=== PATIENT | female | born 1955 | race Caucasian/White ===

== ENCOUNTER → 2017-03-02 16:33 | Outpatient (CLI) | payer OTHER | END | disposition home or self-care (01) | LOC: D.MAMMO 14:30 | DX: Z12.31 Encounter for screening mammogram for malignant neoplasm of breast (principal) ==

== ENCOUNTER → 2017-03-16 09:10 | Outpatient (CLI) | payer MEDICARE | END | disposition home or self-care (01) | LOC: D.RAD 09:10 | DX: Z98.84 Bariatric surgery status (principal) ==

== ENCOUNTER 2017-04-04 09:26 | Day surgery (SDC) | payer OTHER ==
[~2017-04-04] VITALS: Ht 175.3 cm; Wt 168.2 kg
[2017-04-04] MEDS ORDERED: ELAVIL25 MG PO (09:47)
[2017-04-04] MEDS ORDERED: ESTRACE1 MG PO (09:47)
[2017-04-04] MEDS ORDERED: HCTZ25 MG PO (09:47)
[2017-04-04] MEDS ORDERED: CYMBALTA60 MG PO (09:48)
[2017-04-04] MEDS ORDERED: TOPROL XL100 MG PO (09:48)
[2017-04-04] MEDS ORDERED: DICLOFENAC SODI50 MG PO (09:49)
[2017-04-04 09:58] VITALS: BP 118/74; Ht 175.3 cm; Wt 168.2 kg
[2017-04-04 11:03] LABS: ANION GAP 14.5 mmol/L (8-16); CALCIUM 8.9 mg/dL (8.5-10.1); CARBON DIOXIDE 30.5 mmol/L (21.0-32.0); CREATININE - SERUM 0.9 mg/dL (0.6-1.3)
--- NOTE | 2017-04-04 14:49 | NUR ---
1425 DISCHARGE INSTRUCTIONS COMPLETE. NO PRESCRIPTIONS GIVEN. MD DID NOT COME TO BEDSIDE AFTER PROCEDURE AND PATIENT DID NOT WANT TO WAIT. FOLLOW UP APPOINTMENT MADE. ESCORTED OUT BY VOLUNTEER.
[2017-04-05 07:14] LABS: HEMATOCRIT 52.3 % (36.0-48.0); HEMOGLOBIN 16.5 g/dL (12-16); MCH 30.8 pg (26.0-34.0); MCHC 31.5 g/dL (31.0-37.0); MCV 97.6 fL (80.0-100.0); MEAN PLATELET VOLUME 10.9 fL (7.4-10.4); RBC 5.36 10x6/uL (4.00-5.40); RDW 14.6 % (11.5-14.5); WBC 8.9 10x3/uL (4.8-10.8)
--- NOTE | 2017-04-05 08:04 | OP ---
PATIENT NAME: MARISSA RANKIN MEDICAL RECORD: [id number] :57 LOCATION:D.OPS ADMISSION DATE: SURGEON: ANGELES GONZALES MD DATE OF OPERATION: 04/04/2017 SURGEON: Angeles Gonzales MD (JJ) PREOPERATIVE DIAGNOSES: 1. Dysphagia. 2. History of gastric band. 3. Morbid obesity. POSTOPERATIVE DIAGNOSES: 1. Dysphagia. 2. History of gastric band. 3. Morbid obesity. PROCEDURE PERFORMED: Esophagogastroduodenoscopy. ANESTHESIA: Total intravenous anesthesia. COMPLICATIONS: None. SPECIMENS: None. Case was contaminated. BLOOD LOSS: Minimal. OPERATIVE COURSE: After consent was obtained, the patient was taken to the endoscopy suite. Time-out was taken to confirm the correct patient and procedure. Hurricaine spray was administered. Bite-block was placed. Total intravenous anesthesia was given. The patient was placed in the left lateral decubitus position. Scope was inserted through the bite-block. It was passed into the posterior oropharynx, it was passed posterior to the epiglottis. Under direct endoscopic vision, the scope was advanced through the esophagus and into the stomach. The stomach appeared grossly normal. Scope was retroflexed. There appeared to be a moderate-sized hiatal hernia. The scope was withdrawn. The GE junction appeared relatively normal. The gastric band has slipped well above the GE junction. Just above the gastroesophageal junction, is a second significant luminal narrowing with significant esophagitis above the area of luminal narrowing, consistent with dilatation of the esophagus just above the gastric band. At this time, the scope was advanced back into the stomach. The stomach was desufflated. The remaining portion of the esophagus was examined upon withdrawal of the scope. There were no abnormalities noted within distal esophagus or mid or proximal esophagus. At the end of the case, all needle and instrument counts were correct. No complications occurred. The patient was transferred to recovery room in satisfactory condition. TRANSINT:[id number] Voice Confirmation ID: [id number] DOCUMENT ID: [id number] OPERATIVE REPORT [id number] MARISSA RANKINANGELES SOLIS MD at 0804 CC: [id number] DICTATION DATE: 04/04/17 1308 RIM ROLLER OPERATOR: 04/04/17 1837 [facility] 04/04/17 [facility] [address] [facility] [place] [address]
== END 2017-04-04 14:25 | disposition home or self-care (01) ==
LOC: D.OPS 09:26
PROVIDERS: Anesthesiology
DX: R13.10 Dysphagia, unspecified (principal); E66.01 Morbid (severe) obesity due to excess calories; Z68.43 Body mass index [BMI] 50.0-59.9, adult; Z98.890 Other specified postprocedural states; F17.200 Nicotine dependence, unspecified, uncomplicated; I10 Essential (primary) hypertension; K44.9 Diaphragmatic hernia without obstruction or gangrene; Z01.812 Encounter for preprocedural laboratory examination

== ENCOUNTER 2017-04-23 11:31 | Day surgery (SDC) | payer OTHER ==
[~2017-04-23 11:31] MED LIST: CYMBALTA60 MG PO; DICLOFENAC SODI50 MG PO; ELAVIL25 MG PO; ESTRACE1 MG PO; HCTZ25 MG PO; TOPROL XL100 MG PO
[2017-04-23 12:12] VITALS: BP 120/75; BMI 45.9
[2017-04-23 12:23] LABS: HEMATOCRIT 49.3 % (36.0-48.0); HEMOGLOBIN 16.8 g/dL (12-16); MCH 30.8 pg (26.0-34.0); MCHC 34.1 g/dL (31.0-37.0); MCV 90.5 fL (80.0-100.0); MEAN PLATELET VOLUME 10.1 fL (7.4-10.4); RBC 5.45 10x6/uL (4.00-5.40); RDW 13.6 % (11.5-14.5); WBC 9.3 10x3/uL (4.8-10.8)
--- NOTE | 2017-04-23 15:09 | NUR ---
PT REC'D TO ROOM VIA STRETCHER. AWAKE, ALERT, TALKING.
--- NOTE | 2017-04-23 15:20 | NUR ---
LIQUID DIET SERVED AND TOLERATED.
--- NOTE | 2017-04-23 15:40 | NUR ---
IV D/C'D CATH INTACT.
--- NOTE | 2017-04-23 15:50 | NUR ---
D/C INSTRUCTIONS EXPLAINED TO PT. VOICED UNDERSTANDING. COPIES OF ALL GIVEN TO PT.
--- NOTE | 2017-04-23 15:55 | NUR ---
D/C'D HOME VIA W/C TO PRIVATE CAR.
--- NOTE | 2017-04-25 14:40 | OP ---
PATIENT NAME: MARISSA RANKIN MEDICAL RECORD: [id number] :57 LOCATION:DLeeannOPS ADMISSION DATE: SURGEON: VISHNU HERNÁNDEZ DO DATE OF OPERATION: 04/23/2017 PROCEDURE: Colonoscopy with polypectomy. INDICATIONS FOR PROCEDURE: Screening for colorectal cancer. SCOPE: Olympus video pediatric colonoscope. MEDICATIONS: Propofol 500 mg IV per anesthesia. WITHDRAWAL TIME: 14 minutes. ESTIMATED BLOOD LOSS: Minimal. COMPLICATIONS: None. FINDINGS: Informed consent was given. The patient was made comfortable with the above medication. After reaching an adequate level of sedation by slow IV push, the patient was placed on her left side. A digital rectal examination was performed and was normal. The endoscope was then advanced under direct visualization through the rectum to the terminal ileum. The scope was slowly withdrawn and the mucosa was carefully examined. The prep quality was excellent. There were 4 polyps visualized on today's examination. The first was a benign-appearing sessile polyp, which measured approximately 2-3 mm in diameter and was located in the cecum near the appendiceal orifice. It was removed using cold forceps in one piece and completely retrieved. The other 3 polyps were all located in the sigmoid colon. They were benign-appearing and sessile and ranged in size from 4-5 mm in diameter. They were all removed using hot forceps in one piece and completely retrieved. Retroflexion was performed in the rectum with visualization of small nonbleeding internal hemorrhoids. The endoscope was then withdrawn from the patient. The patient tolerated the procedure well. There were no complications. IMPRESSION: 1. Four polyps as described above removed using cold and hot forceps. 2. Small nonbleeding internal hemorrhoids. PLAN AND RECOMMENDATIONS: 1. Discharge home when recovery parameters are met. 2. Follow up biopsy specimen results. 3. Continue current diet. 4. Continue current medications. 5. Recall colonoscopy in 5 years based on the number and types of polyps removed on today's examination. TRANSINT:[id number] Voice Confirmation ID: [id number] DOCUMENT ID: [id number] OPERATIVE REPORT [id number] MARISSA RANKIN VISHNU HERNÁNDEZ DO at 1440 CC: [id number] DICTATION DATE: 04/23/17 1509 PAPER CARRIER: 04/23/[address] [facility] 04/23/[address] [facility] [address] [place] [address]
== END 2017-04-23 16:05 | disposition home or self-care (01) ==
LOC: D.OPS 11:31
PROVIDERS: Anesthesiology
DX: Z12.11 Encounter for screening for malignant neoplasm of colon (principal); I10 Essential (primary) hypertension; E66.01 Morbid (severe) obesity due to excess calories; Z68.42 Body mass index [BMI] 45.0-49.9, adult; Z01.812 Encounter for preprocedural laboratory examination; K64.8 Other hemorrhoids

== ENCOUNTER 2017-09-03 05:40 | Day surgery (SDC) | payer OTHER ==
[2017-08-31 09:45] LABS: HEMATOCRIT 49.2 % (36.0-48.0); HEMOGLOBIN 16.5 g/dL (12-16); MCH 30.4 pg (26.0-34.0); MCHC 33.5 g/dL (31.0-37.0); MCV 90.8 fL (80.0-100.0); MEAN PLATELET VOLUME 10.1 fL (7.4-10.4); RBC 5.42 10x6/uL (4.00-5.40); RDW 14.2 % (11.5-14.5); WBC 10.6 10x3/uL (4.8-10.8)
--- NOTE | ~2017-09-03 | OP ---
PATIENT NAME: MARISSA RANKIN MEDICAL RECORD: [id number] :57 LOCATION:D.MS Chou2239 ADMISSION DATE: SURGEON: ANGELES GONZALES MD DATE OF OPERATION: 09/03/2017 SURGEON: Angeles Gonzales MD PREOPERATIVE DIAGNOSES: 1. Dysphagia. 2. Hiatal hernia. 3. History of lap band. 4. Morbid obesity. 5. Essential hypertension. POSTOPERATIVE DIAGNOSES: 1. Dysphagia. 2. Hiatal hernia. 3. History of lap band. 4. Morbid obesity. 5. Essential hypertension. PROCEDURE PERFORMED: 1. Laparoscopic gastric band removal and subcutaneous components. 2. Laparoscopic hiatal hernia repair. ANESTHESIA: General. COMPLICATIONS: None. SPECIMENS: Gastric band. Case was contaminated. ESTIMATED BLOOD LOSS: 40 cc. OPERATIVE COURSE: After consent was obtained, the patient was taken to the operating room and placed in the supine position on the operating table. Next, general anesthesia was given via endotracheal intubation after a timeout was performed that confirmed the correct patient and procedure. The abdomen was prepped and draped in typical sterile fashion. Local anesthetic was injected just above the umbilicus. A stab incision was made with 11-blade scalpel. Using an 11-mm bladeless optical trocar, the abdomen was entered under direct laparoscopic vision. Adequate pneumoperitoneum was achieved. The abdominal cavity was inspected. No evidence of bowel injury. No evidence of bleeding. At this time, all remaining were placed, a 12-mm trocar and 5-mm trocar in the right lateral quadrant, 5-mm trocar in the left lateral quadrant. Khadar liver retracted in the subxiphoid position. The left lobe of liver was elevated. The port tubing was dissected using electrocautery. Dissection continued to the level of the anterior stomach. Dissection continued through the scar tissue around the gastric band using combination of electrocautery and Metzenbaum scissor dissection. Once the tissue was dissected, the band was unlocked. The class was cut opened. The band was then pulled through the tract and laid into the left lateral quadrant. To allow this band removal, the hiatal hernia was also dissected during the process. The superior portion of the band was through the diaphragmatic hiatus. The upper third of the stomach and OPERATIVE REPORT [id number] MARISSA RANKIN cardia, the short gastrics were taken with the Harmonic scalpel. Dissection along the greater curvature of stomach in the left crura was identified. The gastrohepatic ligament was opened with the Harmonic scalpel. Dissection continued up to the level of the right crura posteriorly. A posterior window was created with a combination of blunt dissection and Harmonic scalpel. The esophagus was elevated superiorly and the dissection continued circumferentially posterior to the esophagus. Next, circumferentially dissected to the esophagus completing a full hernia dissection. The hernia sac was excised in its entirety. The band was removed. The hiatus was closed with 0 Stratafix polypropylene suture. Approximately 5 cm of intraabdominal esophagus were obtained. The hernia sac and abdominal fat pad were dissected off the anterior portion of the stomach. Once this was complete, the area was copiously irrigated and suctioned. No evidence of bowel injury. No evidence of bleeding. The left Khadar liver retractor was removed. The hernia sac was grasped with a laparoscopic grasper and placed towards the left upper quadrant. At this time, all remaining instruments were removed. The abdomen was desufflated. Trocars removed. Left upper quadrant incision was reopened Dissecting the level of the external oblique fascia. The subcutaneous port was identified. It was circumferentially dissected. The muscle was taken with electrocautery. The peritoneum and fascia were opened with electrocautery. The subcutaneous port in the band were removed in its entirety. The hernia sac was delivered through the incision and sent for permanent pathology. At this time, the remaining laparoscopic instrument and trocars were both removed. The fascia was then closed with #1 Prolene Skin was closed with sunitha. At the end of the case, all needle and instrument counts were correct. No complications occurred. The patient was extubated and transferred to the PACU in stable condition. TRANSINT:[id number] Voice Confirmation ID: [id number] DOCUMENT ID: [id number] ANGELES GONZALES MD at 1524 CC: [id number] DICTATION DATE: 09/03/17 1227 SPANNER OPERATOR: 09/03/17 1342 [facility] [address] [place] [id number]
[2017-09-03] MEDS ORDERED: PROAIR HFA8.5 GM INH (07:35)
[2017-09-03] MEDS ORDERED: BREO ELLIPTA 21 EACH (07:36)
[2017-09-03 07:37] VITALS: BP 118/73; BMI 54.4
[2017-09-03 08:24] LABS: CALC OSMOLALITY 280 mosm/kg (275-300); CALCIUM 9.5 mg/dL (8.5-10.1); CARBON DIOXIDE 25.8 mmol/L (21.0-32.0); CHLORIDE - SERUM 101 mmol/L (98-107); CREATININE - SERUM 0.8 mg/dL (0.6-1.3); GLUCOSE 112 mg/dL (74-106); POTASSIUM - SERUM 3.6 mmol/L (3.5-5.1); SODIUM 139 mmol/L (136-145); UREA NITROGEN 17 mg/dL (7-18); eGFR NON AFRICAN AMERICAN 77 mL/min (90-120)
[2017-09-03 13:33] VITALS: BP 96/51
[2017-09-03 13:41] VITALS: BP 96/51; BMI 54.7
[2017-09-03] MEDS ORDERED: HYDROCODON-ACE1 EAC7 PO (15:51)
== END 2017-09-03 17:33 | disposition home or self-care (01) ==
LOC: D.OPS 05:40 → D.PAN 08:00 → D.OPS 08:00 → D.MS 13:09 → D.OPS 17:33
PROVIDERS: Anesthesiology
DX: K44.9 Diaphragmatic hernia without obstruction or gangrene (principal); Z45.89 Encounter for adjustment and management of other implanted devices; E66.01 Morbid (severe) obesity due to excess calories; I10 Essential (primary) hypertension; Z01.812 Encounter for preprocedural laboratory examination

== ENCOUNTER → 2017-09-20 07:26 | Outpatient (CLI) | payer OTHER ==
[2017-09-03 13:41] VITALS: BMI 54.7
[~2017-09-20 07:26] MED LIST changes: +BREO ELLIPTA 21 EACH; +HYDROCODON-ACE1 EAC7 PO; +PROAIR HFA8.5 GM INH
[2017-09-25 21:08] LABS: IMMUNOGLOBULIN E 156 IU/mL (0-100)
== END | disposition home or self-care (01) ==
LOC: D.RT 07:26
PROVIDERS: Internal Medicine Pulmonary Disease
DX: J45.909 Unspecified asthma, uncomplicated (principal)

== ENCOUNTER → 2017-10-02 08:31 | Outpatient (CLI) | payer OTHER ==
[~2017-10-02] VITALS: Ht 175.3 cm; Wt 166.9 kg
[2017-10-02 09:52] VITALS: Ht 175.3 cm; Wt 166.9 kg
== END | disposition home or self-care (01) ==
LOC: D.FANS 08:31
DX: E66.01 Morbid (severe) obesity due to excess calories (principal)

== ENCOUNTER 2017-12-26 05:55 | Inpatient (IN) | payer OTHER ==
[2017-12-25 13:28] LABS: HEMATOCRIT 50.2 % (36.0-48.0); HEMOGLOBIN 17.3 g/dL (12-16); MCH 30.8 pg (26.0-34.0); MCHC 34.5 g/dL (31.0-37.0); MCV 89.3 fL (80.0-100.0); MEAN PLATELET VOLUME 9.9 fL (7.4-10.4); RBC 5.62 10x6/uL (4.00-5.40); WBC 9.7 10x3/uL (4.8-10.8)
[2017-12-25 13:42] LABS: ANION GAP 12.8 mmol/L (8-16); CALCIUM 9.3 mg/dL (8.5-10.1); CARBON DIOXIDE 28.2 mmol/L (21.0-32.0)
[~2017-12-26] VITALS: Ht 175.3 cm; Wt 166.9 kg
--- NOTE | ~2017-12-26 | HP ---
PATIENT: MARISSA RANKIN MEDICAL RECORD: [id number] ACCOUNT: [id number] LOCATION:D.MS Chou2204 : 57 ADMISSION DATE: 12/26/17 HISTORY AND PHYSICAL EXAMINATION HISTORY OF PRESENT ILLNESS: This is a 62-year-old female who is seeking elective revision of prior bariatric surgery. The patient has previously had a Lap-Band. She has had a Lap-Band removal and a hiatal hernia repair. She is seeking revision to laparoscopic vertical sleeve gastrectomy for failed medical weight loss attempts. She has undergone preoperative nutritional counseling as well as psychological evaluation. She had an EGD and barium swallow. She has received pulmonary clearance. ALLERGIES: INCLUDE GRASS, POLLEN, HONEY, TREE AND SHRUB POLLEN. MEDICATIONS: Include amitriptyline 25 mg p.o. at bedtime, duloxetine 60 mg delayed release daily, estradiol, fluticasone, hydrochlorothiazide 25 mg p.o. daily, hydrocodone 5/325 p.o. daily, metoprolol ER 100 mg p.o. daily, montelukast 10 mg p.o. daily, ProAir 90 mcg aerosol inhaler two puffs every 4 hours. PAST MEDICAL HISTORY: Nicotine dependence, osteoarthritis, dysphagia, history of gastric banding, hypertension, morbid obesity. FAMILY HISTORY: Mother had depression, hypertension, and osteoporosis. Father had lung cancer. SOCIAL HISTORY: Former smoker, quit in 2017. Smokes one pack a day for 40 years. PAST SURGICAL HISTORY: Bilateral Achilles tendon surgery, knee surgery times 2, , hysterectomy, laparoscopic hiatal hernia repair, laparoscopic gastric band, removal of laparoscopic gastric band. REVIEW OF SYSTEMS: CONSTITUTIONAL: She has night sweats and exercise intolerance. EYES: Irritation and dry eyes. EARS, NOSE, AND THROAT: Dry mouth. NECK: No complaints. CARDIOVASCULAR: Shortness of breath while walking, dyspnea. RESPIRATORY: Cough, wheezing, shortness of breath. GASTROINTESTINAL: Generalized abdominal pain. GENITOURINARY: Urinary frequency and urinary incontinence. MUSCULOSKELETAL: Back pain, joint pain, lower extremity swelling. SKIN: No complaints. NEUROLOGIC: No complaints. PSYCHIATRIC: Depression. ENDOCRINE: Fatigue and increased thirst. ALLERGY/IMMUNOLOGY: Frequent sneezing and sinus pressure. PHYSICAL EXAMINATION: CONSTITUTIONAL: Morbidly obese female, in mild distress. EYES: Extraocular muscles are intact. EARS, NOSE, MOUTH, AND THROAT: Normal dentition. LUNGS: Decreased breaths with inspiratory and expiratory wheezing. HISTORY AND PHYSICAL [id number] MARISSA RANKIN CARDIOVASCULAR: Normal sinus rhythm. ABDOMEN: Soft and nondistended. No masses or guarding. No hernias. MUSCULOSKELETAL: She has edema and lower extremity varicosities with normal movement of all extremities. She is neurovascularly intact. ASSESSMENT: A 62-year-old female with morbid obesity, essential hypertension, osteoarthritis, dysphagia, history of bariatric surgical procedure, prior nicotine dependence. PLAN: Elective laparoscopic revision to vertical sleeve gastrectomy. Admit to med-surg, preoperative IV antibiotics, preoperative DVT prophylaxis. TRANSINT:[id number] Voice Confirmation ID: [id number] DOCUMENT ID: [id number] ANGELES GONZALES MD at 1942 CC: [id number] DICTATION DATE: 01/16/181811 EVP MANAGING DIRECTOR: 01/16/181908 DIS IN 12/27/17 [facility] [address] [place] [address]
--- NOTE | ~2017-12-26 | DS ---
PATIENT:MARISSA RANKIN :59 MEDICAL RECORD: [id number] DISCHARGE SUMMARY ADMISSION DATE: 12/26/17 DISCHARGE DATE: 12/27/17 DATE OF ADMISSION: 12/26/2017. DATE OF DISCHARGE: 12/27/2017. ADMITTING PHYSICIAN: Angeles Gonzales MD DISCHARGE PHYSICIAN: Angeles Gonzales MD HOSPITAL COURSE: This is a 62-year-old female who was admitted for a laparoscopic revision to a vertical sleeve gastrectomy. The patient underwent a laparoscopic revision to vertical sleeve gastrectomy. Postoperatively, she was transferred to the floor in stable condition. She was started on a clear liquid diet. On postoperative day #1, she had the Gastrografin swallow, which showed no evidence of leak. She was continued on a phase 2 bariatric diet. She was seen by physical therapy. She was advanced to a bariatric phase 2 liquid diet and at the time of discharge, she was tolerating her diet. Her pain was well controlled with p.o. pain medicine. She was ambulating independently and voiding without difficulty. DISCHARGE MEDICATIONS: Please see the electronic medical record for a full list of discharge medications. FOLLOWUP: Dr. Gonzales in 2 weeks. DISCHARGE DIET: Bariatric phase 2 liquid diet for 2 weeks. Dietary instruction sheet was provided to the patient. ACTIVITY: As tolerated, walking encouraged, stairs allowed. No heavy lifting or strenuous activity for 4 weeks. WOUND CARE: The patient may shower, no bath for 2 weeks. DISCHARGE CONDITION: Stable. TRANSINT:[id number] Voice Confirmation ID: [id number] DOCUMENT ID: [id number] ANGELES GONZALES MD at 1838 CC: [id number] DICTATION DATE: 01/18/18 09 PRINTED CIRCUIT BOARDS BEVELER: 01/18/18 1054 DIS IN 12/27/17 [facility] [address] [place] [id number]
[2017-12-26 04:00] VITALS: BP 97/53
[~2017-12-26 05:55] MED LIST changes: +FISH OIL 1,0001 CA1 PO; +FLUTICASONE PRO16 GM NASAL; +LUTEIN20 MG PO; +SINGULAIR10 MG PO; +VITAMIN D5000 UNIT PO; +ZYRTEC10 MG PO
[2017-12-26 06:29] VITALS: BP 110/59; BMI 54.4
[2017-12-26 13:01] VITALS: BP 101/52
[2017-12-26 20:00] VITALS: BP 102/50
[2017-12-27 05:28] LABS: BASOPHILS 0.1 % (0-2); EOSINOPHILS 0.1 % (0-7); HEMATOCRIT 44.2 % (36.0-48.0); HEMOGLOBIN 14.3 g/dL (12-16); IMMATURE GRANULOCYTES 0.2 % (0-5); LYMPHOCYTES 16.8 % (15-50); MCH 29.7 pg (26.0-34.0); MCHC 32.4 g/dL (31.0-37.0); MEAN PLATELET VOLUME 10.6 fL (7.4-10.4); MONOCYTES 8.5 % (2-11); NEUTROPHILS 74.3 % (40-80); PLATELET COUNT 209 10x3/uL (130-400); RBC 4.81 10x6/uL (4.00-5.40); RDW 14.2 % (11.5-14.5)
[2017-12-27 05:40] LABS: MCV 91.9 fL (80.0-100.0); WBC 13.6 10x3/uL (4.8-10.8)
[2017-12-27 05:51] LABS: ALBUMIN 2.5 g/dL (3.4-5.0); ALKALINE PHOSPHATASE 61 U/L (46-116); ALT (SGPT) 20 U/L (10-68); CALC OSMOLALITY 279 mosm/kg (275-300); CALCIUM 8.2 mg/dL (8.5-10.1); CARBON DIOXIDE 30.8 mmol/L (21.0-32.0); CHLORIDE - SERUM 104 mmol/L (98-107); GLUCOSE 113 mg/dL (74-106); POTASSIUM - SERUM 3.5 mmol/L (3.5-5.1); SODIUM 140 mmol/L (136-145); UREA NITROGEN 12 mg/dL (7-18); eGFR NON AFRICAN AMERICAN 90 mL/min (90-120)
[2017-12-27 05:55] LABS: CREATININE - SERUM 0.7 mg/dL (0.6-1.3)
[2017-12-27 06:10] LABS: PROTEIN - SERUM 6.1 g/dL (6.4-8.2)
[2017-12-27 12:24] VITALS: Ht 175.3 cm; Wt 166.9 kg
[2017-12-27 13:15] VITALS: BP 108/54
[2017-12-27] MEDS ORDERED: MEPERIDINE HCL50 MG PO (15:42)
[2017-12-27] MEDS ORDERED: ZOFRAN ODT4 MG/UDTAB PO (15:42)
[2017-12-27 16:16] VITALS: BP 115/57
== END 2017-12-27 17:00 | disposition home or self-care (01) | DRG 621 ==
LOC: D.SDCHOLD 05:55 → D.MS 05:55 → D.SDCHOLD 08:00 → D.MS 12:32
PROVIDERS: Anesthesiology; Surgery
PROC: 0DB64Z3 Excision of Stomach, Percutaneous Endoscopic Approach, Vertical (ICD-10-PCS; principal; 2017-12-26 08:00)
DX: E66.01 Morbid (severe) obesity due to excess calories (principal); Z68.43 Body mass index [BMI] 50.0-59.9, adult; I10 Essential (primary) hypertension; M19.90 Unspecified osteoarthritis, unspecified site; R13.10 Dysphagia, unspecified

== ENCOUNTER 2017-12-29 13:50 | Inpatient (IN) | payer OTHER ==
[2017-12-29] VITALS (10 sets, daily range): BP systolic 80–118; BP diastolic 35–83; BMI 53.4
[~2017-12-29] VITALS: Ht 175.3 cm; Wt 81.4 kg
--- NOTE | ~2017-12-29 | OP ---
PATIENT NAME: MARISSA RANKIN MEDICAL RECORD: [id number] :57 LOCATION:D.[facility] D.2301 ADMISSION DATE:12/29/17 SURGEON: ARTHUR BUTLER MD DATE OF OPERATION: 01/14/2018 PREOPERATIVE DIAGNOSIS: History of gastric leak after a laparoscopic gastric sleeve resection for morbid obesity. POSTOPERATIVE DIAGNOSES: History of gastric leak after a laparoscopic gastric sleeve resection for morbid obesity with a persistent defect in the gastric wall. PROCEDURE: Esophagogastroduodenoscopy. SURGEON: Arthur Butler MD PAIL TESTER: None. BLOOD LOSS: Minimal. ANESTHESIA: General. I scrubbed out and removed my gown. A bite block was inserted into the mouth. I was able to advance the gastroscope easily into the hypopharynx. The esophagus was easily intubated. The two intragastric stents were visualized. I was able to intubate the duodenum. I then withdrew. There was no obstruction to outflow from the stents or an outflow obstruction through the pylorus. I was able to maneuver my gastroscope between the uncovered portion of the upper stent and was able to visualize the abdominal cavity through the gastric defect. Both Dr. Ramirez and I felt that moving the stents would be counterproductive and could be harmful to the patient. The proximal stent did extend into the esophagus. The gastroscope was then withdrawn. TRANSINT:[id number] Voice Confirmation ID: [id number] DOCUMENT ID: [id number] ARTHUR BUTLER MD at 1717 CC: [id number] DICTATION DATE: 01/15/181942 ENERGY ADVISOR: 01/25/18 0957 ADM IN [place] [id number] [place] [id number]
--- NOTE | ~2017-12-29 | OP ---
PATIENT NAME: MARISSA RANKIN MEDICAL RECORD: [id number] :57 LOCATION:[facility] D.2302 ADMISSION DATE:12/29/17 SURGEON: RANDEE LOPEZ MD DATE OF OPERATION: 01/16/2018 PROCEDURE: Fiberoptic bronchoscopy. INDICATION: Ms. Rankin is a 62-year-old female who is on mechanical ventilation. The chest radiograph showed consolidation of the right upper lobe. Fiberoptic bronchoscopy was carried out to rule out any mucus plug and obtain specimen for culture. PROCEDURE IN DETAIL: The fiberoptic bronchoscope was passed through the tracheostomy tube. The ros was sharp. The right main bronchus was normal. The subsegment to the right upper lobe, right middle lobe, and right lower lobe were within normal range. No endobronchial lesion was seen. There were bronchitic changes that bled easily by touching of the bronchoscope. The left main bronchus was normal. The subsegment to the left upper lobe and left lower lobe were within normal range. No endobronchial lesion seen. No mucus plugging was seen. Specimen washing was obtained and sent for routine culture and sensitivity, AFB, fungus, and cytology. TRANSINT:[id number] Voice Confirmation ID: [id number] DOCUMENT ID: [id number] RANDEE LOPEZ MD at 1110 CC: [id number] DICTATION DATE: 01/16/18 1710 METAL ANNEALER: 01/16/18 1744 ADM IN [place] [id number] [place] [id number]
--- NOTE | ~2017-12-29 | OP ---
PATIENT NAME: MARISSA RANKIN MEDICAL RECORD: [id number] :59 LOCATION:[facility] D.2302 ADMISSION DATE:12/29/17 SURGEON: RANDEE LOPEZ MD DATE OF OPERATION: 01/20/2018 PROCEDURE: Fiberoptic bronchoscopy. INDICATION: Ms. Rankin is a 62-year-old female who is on the ventilator. Chest radiograph showed total atelectasis of the right lower lobe, right middle lobe. Fiberoptic bronchoscopy carried out to remove any mucous plugs. DESCRIPTION OF PROCEDURE: Fiberoptic bronchoscope was passed through the tracheostomy tube. The ros was sharp. There was a total occlusion of the right main bronchus with a thick yellowish secretion. The mucous plug was removed. There was also thick secretion on the left side. No endobronchial lesion was seen as such. There were bronchitic changes and the bronchial tube bled easily by the fiberoptic bronchoscope. Overall, the patient tolerated the procedure very well. TRANSINT:[id number] Voice Confirmation ID: [id number] DOCUMENT ID: [id number] RANDEE LOPEZ MD at 1110 CC: [id number] DICTATION DATE: 01/20/18 1145 CASHIERS SUPERVISOR: 01/20/18 1219 ADM IN [place] [id number] [place] [address]
--- NOTE | ~2017-12-29 | OP ---
PATIENT NAME: MARISSA RANKIN MEDICAL RECORD: [id number] :59 LOCATION:D.[facility] D.2302 ADMISSION DATE:12/29/17 SURGEON: ANGELES GONZALES MD DATE OF OPERATION: 01/24/2018 SURGEON: Angeles Gonzales MD (JJ) PREOPERATIVE DIAGNOSIS: 1. Gastric perforation. 2. Vent-dependent respiratory failure. 3. Acute renal failure. 4. Morbid obesity. 5. Sepsis. POSTOPERATIVE DIAGNOSES: 1. Gastric perforation. 2. Vent-dependent respiratory failure. 3. Acute renal failure. 4. Morbid obesity. 5. Sepsis. PROCEDURES PERFORMED: Abdominal washout, primary repair of gastrotomy, and intraabdominal wound VAC placement of greater than 50 square centimeters. ANESTHESIA: General. COMPLICATIONS: None. SPECIMENS: None. Case was clean/contaminated. OPERATIVE COURSE: After consent was obtained, the patient was taken to the operating room and placed in the supine position on the operating table. General anesthesia was given. Time-out was taken to confirm the correct patient and procedure. The abdomen was prepped and draped in typical sterile fashion. ABThera wound VAC was removed. Abdomen was again prepped in typical sterile fashion. All 4 quadrants were examined. Irrigation of all 4 quadrants was performed. The left upper quadrant was examined. The proximal portion of stomach had again dehisced. There was an approximately 3-4 cm opening of the stomach. The opening was closed using interrupted 2-0 Stratafix suture. The left upper quadrant was copiously irrigated and suctioned. Two 19-Panamanian Khari drains were placed into the left upper quadrant. Again, irrigation and suction was performed. ABThera wound VAC was cut to size and placed intraabdominally. It was secured to the skin. The VAC was connected to the suction with adequate seal. At the end of the case, all needle and instrument counts were correct. No complications occurred. The patient was transferred to the ICU in critical condition. TRANSINT:[id number] Voice Confirmation ID: [id number] DOCUMENT ID: [id number] OPERATIVE REPORT [id number] MARISSA RANKINANGELES SOLIS MD at 0812 CC: [id number] DICTATION DATE: 01/24/18 1401 SYSTEMS DEVELOPER: 01/24/18 1456 ADM IN [facility] [address] [place] [address]
--- NOTE | ~2017-12-29 | PN ---
PATIENT:MARISSA RANKIN MEDICAL RECORD: [id number] LOCATION:D.ICU D.230 ADMISSION DATE: 12/29/17 PROGRESS NOTE DATE OF SERVICE: 02/11/2018 SUBJECTIVE: A 62-year-old female who was admitted for abdominal pain. The patient was noted to have acute respiratory failure with hypoxia and hypercapnia. The patient was intubated. She has subsequently been trached on ventilator. The patient was also noted to have acute kidney injury. She has had left lower lobe infiltrate, thought to be pneumonia. Septic and hypoxic. She initially also had shock. The patient is currently on ventilator and has vascular access for hemodialysis. Current problems include acute hypoxemic respiratory failure; acute kidney injury, on hemodialysis; hypertension; morbid obesity; septic shock; retroperitoneal repair of gastric sleeve leak; left lower lobe pneumonia; hypothyroidism. 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 She has had blood per rectum. She had an uneventful night. She has also had anemia and had 2 units of blood transfusion yesterday. PHYSICAL EXAMINATION: GENERAL: Reveals morbidly obese female, who is in no acute distress, on ventilator with occasional jerking motion. HEENT: The patient is normocephalic. Pupils are reactive. NECK: Supple. There is no adenopathy. Trachea is midline. There is a tracheostomy tube. CHEST: Shows mild crackles, mostly on the right. LUNGS: Transmitted sounds. There is no chest wall tenderness. There is no crepitus. CARDIAC: Shows no jugular venous distention, murmur, or gallops. ABDOMEN: Benign, nontender, and nondistended. EXTREMITIES: Show no clubbing, cyanosis, or edema. NEUROLOGICAL: The patient moves upper extremities. Sedation, on ventilator. DIAGNOSTIC DATA: Chest x-ray yesterday showed cardiomegaly. Mild atelectasis. Left lower lobe infiltrates. LABORATORY DATA: CBC shows white count of 5.6, hemoglobin 7.8, hematocrit of 24.8, platelet count of 76,000. Chemistry shows sodium of 146, potassium 4.2, chloride is 114, creatinine is 1.7. Arterial blood gas; pH 7.31, pCO2 of 40, pO2 of 118. ASSESSMENT: 1. Acute respiratory failure with hypoxia. 2. Septic shock with possible peritonitis. 3. Abdominal pain secondary to peritonitis secondary to rupture of gastric sleeve. 4. History of lung carcinoma. 5. Anemia with ongoing GI bleed. 6. Acute kidney injury with increasing creatinine levels. 7. The patient is currently DNR. PLAN: 1. Continue ventilator support. 2. Continue bronchodilators. PROGRESS NOTE [id number] MARISSA RANKIN DISCUSSION: NEUROLOGY: Mental status; the patient is sedated, is not responsive. She has occasional jerks. There are no focal signs. CARDIOVASCULAR: The patient has hypertension. PULMONARY/RESPIRATORY: The patient has pneumonia, acute respiratory failure with hypoxemia, possible anoxic encephalopathy. GASTROINTESTINAL/DIETARY: The patient is n.p.o. at this time, but has GI bleed with anemia. TRANSINT:[id number] Voice Confirmation ID: [id number] DOCUMENT ID: [id number] SCOTT SOLER at 0749 CC: [id number] DICTATION DATE: 02/11/18 1420 SOLO TRUCK DRIVER: 02/11/18 1528 ADM IN [place] [id number] [place] [address]
--- NOTE | ~2017-12-29 | OP ---
PATIENT NAME: MARISSA RANKIN MEDICAL RECORD: [id number] :59 LOCATION:D.[facility] D.2302 ADMISSION DATE:12/29/17 SURGEON: ANGELES GONZALES MD DATE OF OPERATION: 01/17/2018 SURGEON: Angeles Gonzales MD PATIENT ADVOCATE SURGEON: Dr. Arthur Wood ANESTHESIA: General. COMPLICATIONS: None. SPECIMENS: None. Case was contaminated. ESTIMATED BLOOD LOSS: 200 cc. OPERATIVE COURSE: After consent was obtained, the patient was taken to the operating room and placed in the supine position on the operating table. General anesthesia was given. A timeout was taken to confirm the correct patient and procedure. The abdomen was prepped and draped in the typical sterile fashion. The ABThera wound VAC was removed. Copious irrigation of the abdomen was performed. The left lobe of the liver was retracted. The perforated staple line at the proximal portion of the stomach was identified. It was repaired with multiple stay sutures. The tissue was reapproximated with suture. A single firing of the gastrointestinal stapler was powered. Linear GI stapler was then used to close the defect primarily. The staple line was then imbricated using Vicryl suture and a V-Loc suture in combination. At this time, Dr. Wood performed an EGD. The scope was advanced through the oropharynx. It was advanced through the GE junction under direct endoscopic vision and advanced to the pylorus under direct endoscopic vision. The scope was withdrawn. The proximal stent was grasped with a tooth grasper, the stent was removed endoscopically, both stents came out simultaneously and intact. The scope was then reinserted. A leak test was performed, which showed no evidence of leak. The scope was withdrawn and 10 cc of Tisseel were then applied to the anterior proximal stomach, the suture and staple line as well as the posterior proximal stomach. A YONI drain was placed into the left upper quadrant. The ABThera VAC was then placed into the abdomen, used to close the abdominal incision. At the end of the case, all needle and instrument counts were correct. No complications occurred. The patient was transferred back to the ICU in critical condition. TRANSINT:[id number] Voice Confirmation ID: [id number] DOCUMENT ID: [id number] OPERATIVE REPORT [id number] MARISSA RANKINANGELES SOLIS MD at 1052 CC: [id number] DICTATION DATE: 01/18/18911 IRRIGATION WORKER: 01/18/18 1047 ADM IN [place] [id number] [place] [id number]
--- NOTE | ~2017-12-29 | MORECARE ---
CASE MANAGEMENT DISCHARGE SUMMARY PATIENT: MARISSA RANKIN UNIT: [id number] ADM DATE: 12/29/17 AGE: 62 : 59 SEX: F ROOM/BED: D.2301 AUTHOR: MOLLY, GENETIC COORDINATOR PHYSICIAN: REFERRING PHYSICIAN: JONATHAN BUTLER MD DATE OF SERVICE: 12/29/17 Discharge Plan Patient Name: MARISSA RANKIN Facility: [facility]:[place] : 1955 Planned Disposition: Inpatient Rehab Anticipated Discharge Date: Discharge Date: Expected LOS: Initial Reviewer: [id number] Initial Review Date: 01/31/2018 Generated: 02/08/18 12:42 pm Comments DCP- Discharge Planning Updated by [id number]: Rachell Kaur on 02/08/18 10:[address] CM met with patient spouse about hospice consult order. Spouse states he plans to contact family in [place] to come see patient before extubation. Spouse does not know when family will be available to meet or when he wants extubation performed. CM explained [facility] Hospice. Spouse verbalized understanding of [facility] Hospice services. Spouse doesn't want CM to contact hospice at this time. States he wants to wait until a few hours after patient is Extubated to have Hospice admit, if needed. CM gave verbal report to nurse, Yamilka and charge nurse, Cornelia about spouse's discharge plan. Spouse will notify ICU staff when he is ready for extubation. CM will continue to follow and assist as needed with discharge planning / needs. DCP- Discharge Planning Updated by [id number]: Rachell Kaur on 01/31/18 10:[address] Patient Name: MARISSA RANKIN Admission Status: ER Accout number: [id number] Admission Date: 12-29-2017 : 1955 Admission Diagnosis:SEPSIS, UNSPECIFIED ORGANISM Attending: JONATHAN BUTLER Current LOS: 33 Anticipated DC Date: Planned Disposition: Inpatient Rehab Primary Insurance: [employer] Discharge Planning Comments: CM met with (patient still on vent at this time) about discharge planning. Patient Rosalino states that she will most likely need rehab prior to going home. Patient doesn't have any DME within the home. CM will follow and assist in discharge planning as needed. Welding Machine Operator Resistance: Rachell Kaur DCP- Discharge Planning Updated by [email or web address]: Rachell Kaur on 01/29/18 2:[address] Unable to assess. Sedated on Vent. No family present. CM attempted to call spouse no answer at this time. CM will continue to follow and assist as needed with discharge planning / needs. DCP- Discharge Planning Updated by [email or web address]: Lizette Forbes on 01/11/18 2:[address] Unable to assess. Sedated on Vent. No family present. CM will continue to follow and assist as needed with discharge planning / needs. DCPIA - Discharge Planning Initial Assessment Updated by [email or web address]: Rachell Kaur on 01/31/18 10:49 am * Is the patient Alert and Oriented? No * How many steps to enterexit or inside your home? * PCP Dr. Dyson * Pharmacy [facility] * Preadmission Environment Home with Family * ADLs Independent * List name and contact numbers for known caregivers / representatives who currently or will assist patient after discharge: Rosalino Rankin () [phone] * Verbal permission to speak to the caregivers and representatives has been obtained from the patient. No * Additional services required to return to the preadmission environment? No * Can the patient safely return to the preadmission environment? Yes * Has this patient been hospitalized within the prior 30 days at any hospital? Yes Patient Name: MARISSA RANKIN Page [id number] All edits/amendments must be made on the electronic document DICTATION DATE: 02/08/18 1141 GRAVEL TRUCK DRIVER: 02/08/18 1141 RPT#: [id number] DC DATE: STATUS: ADM IN [facility] [address] [place] [address] END OF REPORT
--- NOTE | ~2017-12-29 | OP ---
PATIENT NAME: MAIRSSA RANKIN MEDICAL RECORD: [id number] :59 LOCATION:.[facility] D.2302 ADMISSION DATE:12/29/17 SURGEON: ANGELES GONZALES MD DATE OF OPERATION: 01/28/2018 SURGEON: Angeles Gonzales MD PREOPERATIVE DIAGNOSES: 1. Intraabdominal sepsis. 2. Gastric perforation. 3. Vent-dependent respiratory failure. 4. Acute renal failure. POSTOPERATIVE DIAGNOSES: 1. Intraabdominal sepsis. 2. Gastric perforation. 3. Vent-dependent respiratory failure. 4. Acute renal failure. PROCEDURE PERFORMED: 1. Exploratory laparotomy with abdominal washout. 2. T-tube placement into gastrotomy. 3. Delayed abdominal closure. 4. Intraabdominal wound VAC placement. 5. EGD and esophageal stent placement. Case was grossly contaminated. ESTIMATED BLOOD LOSS: 50 cc. OPERATIVE COURSE: After consent was obtained, the patient was taken to the operating room and placed in supine position on the operating table. General anesthesia was given. A timeout was taken to confirm the correct patient and procedure. The abdomen was prepped and draped in typical sterile fashion. All 4 quadrants of the abdomen were examined. All 4 quadrants were irrigated and suctioned. In the left upper quadrant, there was again breakdown of the staple line. There was a small 2-cm gastrotomy. A 14-Yi T-tube was cut to size and placed through the gastrotomy. It was secured in place using 3-0 Vicryl suture in an interrupted fashion. The right subcostal incision was closed. The skin was reapproximated using #1 nylon suture in an interrupted vertical mattress fashion. The ABThera VAC was then placed into the abdomen after being cut to size. The VAC was placed to suction with good seal. T-tube was placed to gravity drainage. At this time, an EGD was performed. A bite block was placed. The scope was passed under direct endoscopic vision posterior to the epiglottis and through the esophagus. Scope was advanced under endoscopic vision through the esophagus into the stomach. The T-tube was visualized. This site was marked with fluoroscopy. The scope was advanced through the pylorus into the first portion of duodenum. A guidewire was placed into the duodenum through the scope. The scope was removed. A 23 x 150 stent was then passed over the wire under fluoroscopy. The stent was deployed across the gastrotomy. The stent deployment device was removed. The scope was then again passed through the oropharynx, posterior to the epiglottis. The scope was easily traversed at the fully covered stent. The T-tube was identified through the esophageal stent. At this time, the stomach and first portion of duodenum were decompressed. The scope was removed. At the end of the case, all needle and OPERATIVE REPORT [id number] MARISSA RANKIN instrument counts were correct. No complications occurred. The patient tolerated the procedure well. She was transferred to the ICU on the ventilator in critical condition. TRANSINT:[id number] Voice Confirmation ID: [id number] DOCUMENT ID: [id number] ANGELES GONZALES MD at 1526 CC: [id number] DICTATION DATE: 01/28/18 1329 CHIEF CREDIT OFFICER: 01/28/18 1345 ADM IN [place] [id number] [place] [id number]
--- NOTE | ~2017-12-29 | OP ---
PATIENT NAME: MARISSA RANKIN MEDICAL RECORD: [id number] :59 LOCATION:D.ICU D.2302 ADMISSION DATE:12/29/17 SURGEON: ANGELES GONZALES MD DATE OF OPERATION: 01/21/2018 SURGEON: Angeles Gonzales MD PREOPERATIVE DIAGNOSES: 1. Gastric perforation. 2. Intra-abdominal sepsis. 3. Acute renal failure. 4. Vent-dependent respiratory failure. 5. Morbid obesity. 6. Lung cancer. POSTOPERATIVE DIAGNOSES: 1. Gastric perforation. 2. Intra-abdominal sepsis. 3. Acute renal failure. 4. Vent-dependent respiratory failure. 5. Morbid obesity. 6. Lung cancer. PROCEDURES PERFORMED: Abdominal washout, placement of intra-abdominal VAC, negative pressure wound therapy sponge greater than 50 square cm. ANESTHESIA: General. COMPLICATIONS: None. SPECIMENS: None. Case was clean/contaminated. ESTIMATED BLOOD LOSS: 50 cc. OPERATIVE COURSE: After consent was obtained, the patient was taken to the operating room. She was placed in the supine position on the operating table. Next, a timeout was taken to confirm the correct patient and procedure. The wound VAC was removed. The abdomen was prepped and draped in typical sterile fashion. All 4 quadrants of the abdomen were inspected. The area was copiously irrigated and suctioned with 2 liters of warm normal saline. In the left upper quadrant, the previous YONI drain was removed. It was clogged with debris. An additional liter of irrigation was used in the left upper quadrant. Two YONI drains were placed along the staple line of the gastric sleeve. An ABThera wound VAC was cut to size. It was placed into the intra-abdominal cavity, two blue sponges were cut to size and placed over the intra-abdominal wound VAC and the VAC was placed to suction with good seal. The YONI drains were secured to the skin using 2-0 nylon suture. At the end of the case, all needle and instrument counts were correct. No complications occurred. OPERATIVE REPORT [id number] MARISSA RANKIN The patient was transferred to the ICU in critical condition. TRANSINT:[id number] Voice Confirmation ID: [id number] DOCUMENT ID: [id number] ANGELES GONZALES MD at 0808 CC: [id number] DICTATION DATE: 01/21/182207 DIRECTOR OF DEMENTIA OPERATIONS: 01/21/18 2256 ADM IN [facility] [address] [place] [id number]
--- NOTE | ~2017-12-29 | OP ---
PATIENT NAME: MARISSA RANKIN MEDICAL RECORD: [id number] :59 LOCATION:D.[facility] D.2301 ADMISSION DATE:12/29/17 SURGEON: ANGELES GONZALES MD DATE OF OPERATION: 01/31/2018 SURGEON: Angeles Gonzales MD (JJ) PREOPERATIVE DIAGNOSES: 1. Gastric perforation. 2. Intraabdominal sepsis. 3. Vent-dependent respiratory failure. 4. Renal failure. 5. Morbid obesity. POSTOPERATIVE DIAGNOSES: 1. Gastric perforation. 2. Intraabdominal sepsis. 3. Vent-dependent respiratory failure. 4. Renal failure. 5. Morbid obesity. PROCEDURE PERFORMED: Intraabdominal washout with delayed abdominal closure. ANESTHESIA: General. COMPLICATIONS: None. SPECIMENS: None. Case was contaminated. OPERATIVE COURSE: After consent was obtained, the patient was taken to the operating room and placed in the supine position on the operating table. General anesthesia was administered. Time-out was taken. Wound VAC was removed. The abdomen was prepped and draped in typical sterile fashion. The right upper quadrant was copiously irrigated and suctioned. The J-P drain was along the posterior wall of stomach. The T-tube remained in the gastrotomy. There was some mucinous exudate noted throughout the staple line. Once the area was copiously irrigated, suctioned, and cleaned, the remaining abdominal incision was closed using #1 nylon suture in an interrupted vertical mattress fashion as well as sunitha. At the end of the case, all needle and instrument counts were correct. No complications occurred. The patient was transferred back to the ICU in critical condition. TRANSINT:[id number] Voice Confirmation ID: [id number] DOCUMENT ID: [id number] ANGELES GONZALES MD at 1753 CC: [id number] DICTATION DATE: 01/31/18 1328 ROUTE RELIEF DRIVER: 01/31/18 1437 [place] [address]
--- NOTE | ~2017-12-29 | OP ---
PATIENT NAME: MARISSA RANKIN MEDICAL RECORD: [id number] :59 LOCATION:D.[facility] D.2301 ADMISSION DATE:12/29/17 SURGEON: JONATHAN BUTLER MD DATE OF OPERATION: 01/17/2018 ASSISTANCE NOTE I assisted Dr. JOSIE Ramirez with the patient's exploratory laparotomy. I was the surgeon during the portion of the operation where an EGD was performed, 2 esophageal stents were retrieved. Endoscopic Botox was injected into the pylorus and balloon dilation of the pylorus was performed. This was dictated separately. My involvement in the exploratory laparotomy included, mainly retraction of tissues. I did no dissection. My involvement in the operation was minimal. I scrubbed in after the operation had already started and I left as he was applying the Abthera wound VAC. TRANSINT:[id number] Voice Confirmation ID: [id number] DOCUMENT ID: [id number] JONATHAN BUTLER MD at 1717 CC: [id number] DICTATION DATE: 01/19/18 1224 FINANCE MANAGER: 01/19/18 1235 ADM IN [facility] [address] [place] [address]
--- NOTE | ~2017-12-29 | OP ---
PATIENT NAME: MARISSA RANKIN MEDICAL RECORD: [id number] :59 LOCATION:.[facility] D.2301 ADMISSION DATE:12/29/17 SURGEON: RANDEE LOPEZ MD DATE OF OPERATION: 01/31/2018 PROCEDURE: Fiberoptic bronchoscopy. INDICATION: Ms. Rankin is a 62-year-old female who is on mechanical ventilation. She has CT scan of the chest which shows large right-sided loculated pleural effusion with atelectasis of the right lower lobe. Fiberoptic bronchoscopy was carried out to inspect the airway for any mucus plugging. PROCEDURE IN DETAIL: The fiberoptic bronchoscope was passed through the tracheostomy tube. The ros was sharp. The right main bronchus, subsegment to the right upper lobe, and right lower lobe within normal range. No endobronchial lesion was seen. The left main bronchus was normal. The subsegment to the left upper lobe, lingula, and left lower lobe within normal. No endobronchial lesion was seen. There were no copious secretions at the bases. Specimen washing was obtained mainly from the right lower lobe and sent for routine culture and sensitivity, AFB, fungus, and cytology. The patient tolerated the procedure very well. TRANSINT:[id number] Voice Confirmation ID: [id number] DOCUMENT ID: [id number] RANDEE LOPEZ MD at 1215 CC: [id number] DICTATION DATE: 01/31/18 1700 GLASS BLOWING LATHE OPERATOR: 01/31/18 1726 DIS IN 02/15/18 [place] [id number] [place] [address]
--- NOTE | ~2017-12-29 | PN ---
PATIENT:MARISSA RANKIN MEDICAL RECORD: [id number] LOCATION:D.ICU D.230 ADMISSION DATE: 12/29/17 PROGRESS NOTE DATE OF SERVICE: 02/14/2018 HISTORY: This is a 62-year-old female who was admitted for pneumonia and acute respiratory failure with hypoxia and hypercapnia. The patient has had gastric bypass and there was abdominal pain, peritonitis and there was gastric leak. The patient was taken to surgery and had saline wash, had been on the ventilator with acute renal injury. Past medical history has been chronic obstructive pulmonary disease, obstructive sleep apnea, and obesity hypoventilation syndrome. The patient has been on NG suction. There has been some GI bleeding, has been on TPN. She has had persistent hyperchloremic acidosis. Sodium level has trended up and today is at 148. She has also had hypocalcemia. This has been corrected now with fluids. The patient had an uneventful night. There is no fever or chills. PHYSICAL EXAMINATION: VITAL SIGNS: Temperature 99, heart rate of 88, respiratory rate of 24, blood pressure 96/74. SHEENT: Unremarkable. NECK: Supple. CHEST: Shows some mild crackles bilaterally. CARDIAC: Shows no jugular venous distention, murmur or gallops. ABDOMEN: Benign. There is no tenderness and there is no distention. EXTREMITIES: No clubbing, cyanosis or edema. LABORATORY AND DIAGNOSTIC DATA: Shows a white count of 7, hemoglobin of 7.8, platelet count is 57,000. Arterial blood gases; pH of 7.26, pCO2 of 42 and pO2 of 62 on 50% FiO2. Chemistry showed sodium of 150, potassium 4.2, chloride is 117, CO2 is 22. Chest x-ray showed interstitial and airspace opacities, unchanged. Elevation on the right hemidiaphragm. ASSESSMENT AND PLAN: 1. Acute respiratory failure with hypercapnia and hypoxia. The patient is on mechanical ventilation. She has had a recent trach. 2. Primary lung carcinoma with metastatic disease. 3. Hyperchloremic acidosis. The patient will need free water to treat as well as we will treat hypernatremia. 4. Peritonitis secondary to gastric surgery leak. 5. Chronic obstructive pulmonary disease, on bronchodilators 6. Morbid obesity. 7. Anemia secondary to chronic disease as well as the GI bleed. DISCUSSION: 1. Neuropsychiatry: The patient opens her eyes as she is understanding, does not track. There are no focal signs. The patient has less jerky knee movements today. 2. Cardiovascular: The patient has normal ejection fraction. There are no arrhythmias. 3. Pulmonary and respiratory: The patient has COPD, is on the ventilator and this will be continued. 4. Malnutrition. The patient is on TPN. PROGRESS NOTE [id number] MARISSA RANKIN PLAN: 1. D5W for free water at 100 cc an hour. 2. Family will decide about further care. TRANSINT:[id number] Voice Confirmation ID: [id number] DOCUMENT ID: [id number] SCOTT SOLER at 0749 CC: [id number] DICTATION DATE: 02/14/18 1012 CARGO CHECKER: 02/14/18 1301 ADM IN [place] [id number] [place] [address]
--- NOTE | ~2017-12-29 | PN ---
PATIENT:MARISSA RANKIN MEDICAL RECORD: [id number] LOCATION:D.ICU D.230 ADMISSION DATE: 12/29/17 PROGRESS NOTE DATE OF SERVICE: 02/15/2018 SUBJECTIVE: This is a 62-year-old female who has had a history of metastatic lung carcinoma. She has also had chronic obstructive pulmonary disease. The patient had gastric band, presented to the Emergency Room with abdominal pain, the possibility of a gastric band leak was ascertained. The patient was washed with saline. The patient has been on the ventilator. She has had GI bleed and has had blood transfusions. She has also had hyperchloremic metabolic acidosis. She has also had hypernatremia. The patient is awake, does not track. There is no fever. PHYSICAL EXAMINATION: VITAL SIGNS: Reveals temperature 99.1, heart rate of 85, respiratory rate 23, blood pressure 119/65, saturation 95%. SHEENT: Unremarkable. Eyes are open, but no response to verbal commands. NECK: Supple. There is no adenopathy. Trachea is midline. CHEST: Shows some mild crackles and rales bilaterally. There is no accessory muscle use. HEART: Shows no jugular venous distention, murmur, or gallops. ABDOMEN: Benign, without any tenderness. EXTREMITIES: Without clubbing, cyanosis or edema. LABORATORY DATA: White count of 7, hemoglobin 7.8, platelet count is 67,000. Arterial blood gas with pH 7.28, pCO2 of 41, and pO2 of 81. Chemistry is remarkable for sodium of 150, potassium 3.9, chloride is 119, creatinine is 1.5. Chest x-ray showed bilateral airspace disease with no change. ASSESSMENT: 1. Acute respiratory failure with hypoxemia and apparent hypercapnia. The patient is on trach with mechanical ventilation. She has mild hyperchloremic acidosis. 2. Metastatic lung carcinoma. 3. GI bleed with anemia. 4. Hyperchloremic metabolic acidosis. This is being treated with free water. 5. Hypernatremia. Continue free water increased to 100 cc an hour. DISCUSSION: NEUROPSYCHIATRIC: There are no focal signs. Mental status is stable. This is decreased probably secondary to metabolic and infectious process. PLAN: 1. Increase D5W at 100 cc an hour. 2. Continue mechanical ventilation. 3. Monitor for less than CBC, transfuse when hemogloblin drops below 7. TRANSINT:[id number] Voice Confirmation ID: [id number] DOCUMENT ID: [id number] PROGRESS NOTE [id number] MARISSA RANKIN AUGUSTINE K at 1307 CC: [id number] DICTATION DATE: 02/15/1834 MANAGER PROTEIN: 02/15/18 1159 DIS IN 02/15/[address] [facility] [address] [place] [place] [id number]
--- NOTE | ~2017-12-29 | OP ---
PATIENT NAME: MARISSA RANKIN MEDICAL RECORD: [id number] :59 LOCATION:[facility] D.2301 ADMISSION DATE:12/29/17 SURGEON: ARTHUR BUTLER MD DATE OF OPERATION: 01/17/2018 PREOPERATIVE DIAGNOSIS: History of gastric leak with indwelling intragastric stents times 2. POSTOPERATIVE DIAGNOSIS: History of gastric leak with indwelling intragastric stents times 2. PROCEDURES: 1. Esophagogastroduodenoscopy with retrieval of endoscopically placed intraluminal gastric stents times 2. 2. Endoscopic intramuscular injection of 100 units of therapeutic Botox into the pylorus. 3. Endoscopic gqsllcn-elk-yiopcgno balloon dilation of the pylorus to 51-Azeri. SURGEON: Arthur Butler MD HR INTERN: None. BLOOD LOSS: Minimal. I had assisted Dr. JOSIE Ramirez with the open portion of the operation. My portion as the surgeon is dictated below. OPERATIVE COURSE: The patient was already under general anesthesia. A bite-block was inserted. A gastroscope was inserted into the mouth. It was advanced easily into the hypopharynx. The esophagus was easily intubated as were the gastric stents, which were still in place. I was then able to traverse the pylorus. I was able to advance all the way to the jejunum. I slowly withdrew the endoscope. I conferred with Dr. JOSIE Ramirez. We wanted to ensure that there was free outflow of gastric contents, so there would not be a back pressure, which would perpetuate a gastric leak. For this reason, we elected to inject Botox into the muscle of the pylorus and also dilate the pylorus to create a larger outflow conduit. We both elected to remove the indwelling stents, which were esophageal stents, but which had been placed within the stomach in order to get the stomach to seal. During the operation we identified there was probably enough good tissue to either staple, the leaking area closed or to oversew it. In order to do this though, we are going to have to remove the stents and then place the gastrostomy tube down along the greater curve of the stomach and use it as a guide, so that the lumen of the stomach would not be too narrowed after the repair. I withdrew into the proximal stomach. I grasped the proximal stent with a rat tooth grasper and then withdrew it. Both stents came out as a unit. They were withdrawn out through the mouth. I re-endoscoped the patient's esophagus and stomach. There have been no injury during the retrieval process. OPERATIVE REPORT [id number] MARISSA RANKIN I advanced to the pylorus. I advanced a sclerotherapy needle. I then injected into the pylorus, at one site, 100 units of therapeutic Botox, which had been mixed with 5 cc of normal saline. I then withdrew the sclerotherapy needle. I advanced a cxvgiln-ndv-htjncckx balloon. I then dilated the pylorus to 51-Azeri with a noiqxqs-wjt-soctlaoa balloon. The balloon was then removed. I then withdrew into the proximal stomach. I insufflated with carbon dioxide. Dr. Ramirez was able to instill normal saline into the upper abdomen and see where the bubbling was occurring. He fired a stapler and then also oversewed some areas. He had me intermittently inflate the stomach with carbon dioxide until there was no bubbling. I was able to again advance all the way into the duodenum. There has been no impingement of the gastric lumen to cause a stricture. The gastroscope was then withdrawn under direct vision. TRANSINT:[id number] Voice Confirmation ID: [id number] DOCUMENT ID: [id number] ARTHUR BUTLER MD at 1717 CC: [id number] DICTATION DATE: 01/19/18 1400 BABY SITTER: 01/19/18 1429 [facility] [place] [address] [place] [address]
--- NOTE | ~2017-12-29 | OP ---
PATIENT NAME: MARISSA RANKIN MEDICAL RECORD: [id number] :59 LOCATION:.[facility] D.2302 ADMISSION DATE:12/29/17 SURGEON: ANGELES GONZALES MD DATE OF OPERATION: 12/31/2017 PREOPERATIVE DIAGNOSES: 1. Septic shock. 2. Acute renal failure. 3. Status post laparoscopic gastric sleeve. POSTOPERATIVE DIAGNOSES: 1. Septic shock. 2. Acute renal failure. 3. Status post laparoscopic gastric sleeve. 4. Perforated stomach with intra-abdominal abscess. PROCEDURE PERFORMED: 1. Diagnostic laparoscopy. 2. Drainage of intra-abdominal abscess. 3. Primary repair of gastric perforation. 4. EGD with endoluminal stent placement. 5. Left IJ Trialysis placement. 6. Immediate interpretation of esophagogastrogram with immediate interpretation with fluoroscopy. COMMUNICATION EQUIPMENT MECHANIC: Drea Gonsalez APRN COSURGEON: Arthur Wood MD ANESTHESIA: General. COMPLICATIONS: None. SPECIMENS: None. Case was grossly contaminated. ESTIMATED BLOOD LOSS: 200 cc. OPERATIVE COURSE: After consent was obtained, the patient was taken from the ICU to the operating room and placed in the supine position on the operating table. General anesthesia was given. The patient arrived from the ICU currently intubated. Previous laparoscopic trocar incisions were opened with an 11-blade scalpel. Using an 11-mm bladeless optical trocar, the abdominal cavity was entered through the supraumbilical incision. Adequate pneumoperitoneum was achieved. All remaining trocars were placed under direct laparoscopic vision, 12-mm trocar in the right lateral quadrant, 5-mm trocar in the right lateral quadrant, two 5-mm trocars in the left lateral quadrant and a Khadar liver retractor in the subxiphoid position. Both quadrant of the upper abdomen had walled off abscess cavities. Both abscess cavities were entered, copiously irrigated and suctioned. The liver was freed up from the previous gastric sleeve. The Khadar liver retractor was then used to elevate the left lobe of the liver. Copious irrigation and debridement was performed of the left upper quadrant. The sleeve gastrectomy site was identified. The staple line was run meticulously. There was a perforation at staple line at the gastroesophageal OPERATIVE REPORT [id number] MARISSA RANKIN junction. At this time, Dr. Wood performed an EGD. Under direct laparoscopic vision and direct endoscopic vision, the scope was passed through the GE junction. The area of perforation was identified. At this time, the perforation was primarily repaired with interrupted 2-0 Vicryl suture. The scope was advanced beyond the repair. The remaining portion of the stomach was evaluated. At this time, Dr. Wood performed an endoluminal stent placement. A partially covered stent was placed across the area of perforation and esophagogastrogram was performed. The stent was advanced. Next, again additional suture was placed in the area of previous perforation. Repeat esophagogastrogram was performed, which showed no evidence of leak. The sutures were reinforced with Evicel. Omentum was then loosely reapproximated with suture to the staple line. At this time, under fluoroscopic guidance, an NG tube was advanced and placed into the stomach and placed on low intermittent wall suction. Two YONI drains were placed in the left upper quadrant. A third YONI drain was placed into the pelvis. The abdomen was copiously irrigated. For full details of the EGD and endoluminal stent placement, please refer to Dr. Wood's note. At this time, Khadar retractor was under direct endoscopic vision. All remaining instruments were removed. The trocars were removed. Skin was closed with 3-0 Monocryl, Mastisol and Steri-Strips. YONI drains were secured with 2-0 nylon suture. The patient was transferred in serious condition back to the ICU. TRANSINT:[id number] Voice Confirmation ID: [id number] DOCUMENT ID: [id number] ANGELES GONZALES MD at 1856 CC: [id number] DICTATION DATE: 12/31/17 1432 C D REACTOR OPERATOR: 12/31/17 1517 ADM IN [facility] [address] [place] [address]
--- NOTE | ~2017-12-29 | OP ---
PATIENT NAME: MARISSA RANKIN MEDICAL RECORD: [id number] :59 LOCATION:.[facility] D.2302 ADMISSION DATE:12/29/17 SURGEON: ANGELES GONZALES MD DATE OF OPERATION: 01/02/2018 PREOPERATIVE DIAGNOSES: 1. Septic shock. 2. Perforated gastric sleeve. 3. Acute renal failure. 4. Ventilator dependent respiratory failure. POSTOPERATIVE DIAGNOSES: 1. Septic shock. 2. Perforated gastric sleeve. 3. Acute renal failure. 4. Ventilator dependent respiratory failure. PROCEDURE PERFORMED: 1. Esophagogastroduodenoscopy with endoluminal stent under fluoroscopy. 2. Immediate interpretation fluoroscopy. ANESTHESIA: General. COMPLICATIONS: None. SPECIMENS: None. Case was contaminated. ESTIMATED BLOOD LOSS: Minimal. OPERATIVE COURSE: The patient was taken from the ICU intubated to the operating room and placed on the operating room table. Timeout was taken to confirm the correct patient and procedure. A bite block was placed. Her NG tube was removed. Once the NG tube was removed, the endoscope was passed through the biteblock into the posterior pharynx under direct endoscopic vision, it was passed posterior to the epiglottis. The scope was advanced under direct endoscopic vision, it was passed through the previously placed stent and the scope was advanced through the stomach and scoped to the duodenum, duodenum appeared within normal limits. At this time, a stiff WallFlex wire was placed in the endoscope and into the duodenum under direct fluoroscopy. The scope was withdrawn and the stomach was examined. There was no evidence of injury within the stomach. The scope was removed. The stent deployment device was passed over the Glidewire under fluoroscopy. The stent was deployed and stacked over the previous stent. At this time, we placed a 23 mm x 155 mm fully covered stent. The Jean Baptiste's point was the mid stomach covering over the area. The device was deployed with the distal half of the stent deployed over the top of the previously placed partially covered stent to allow for full coverage of the sleeve, the area of perforation of the stomach. The stent was deployed in good anatomical position with appropriate overlap, both proximally and distally. At this time, the deployment device was removed. The scope was reinserted. The scope was passed again through the posterior oropharynx, posterior to the epiglottis, is advanced to the esophagus. No esophageal injuries were identified. The scope was easily traversed across both stents into the distal stomach and again through the pylorus. There were no injuries identified. OPERATIVE REPORT [id number] MARISSA RANKIN There was no bleeding identified. The scope was withdrawn and the NG tube was then passed over the guidewire and placed into the lumen of the stomach. At this time, the guidewire was removed. The NG tube was secured and the procedure was terminated. The patient tolerated the procedure well. She was transferred to the ICU in guarded condition. TRANSINT:[id number] Voice Confirmation ID: [id number] DOCUMENT ID: [id number] ANGELES GONZALES MD at 0801 CC: [id number] DICTATION DATE: 01/02/18 1427 GLASSWARE ENGRAVER: 01/02/18 1531 ADM IN [facility] [address] [place] [address]
--- NOTE | ~2017-12-29 | EC ---
PATIENT:MARISSA RANKIN DATE OF SERVICE: 12/29/17 SEX: F MEDICAL RECORD: [id number] DATE OF : 59 [facility] AGE OF PATIENT: 62 ADMISSION DATE: 12/29/17 REFERRING PHYSICIAN: INTERPRETING PHYSICIAN: BON SANCHEZ MD ECHOCARDIOGRAM REPORT ECHO CHARGES 5 ECHO LIMITED Date: 12/30 CLINICAL DIAGNOSIS: CHF, ASSESS EF ECHOCARDIOGRAPHIC MEASUREMENTS (adult normal given) AC root (d.<3.7cm) 3.4 cm LV Septum d (<1.2 cm> 1.3 cm Valve Excursion cm LV Septum (systole) 1.7 cm Left Atria (s.<4.0cm> cm LVPW d(<1.2cm) 1.4 cm RV (d.<2.3cm) cm LVPW (sytole) 1.6 cm LV diastole(<5.6CM) 5.7 cm MV E-F(>70mm/sec) cm LV systole 4.8 cm LVOT Diameter 1.9 cm MV exc.(>10mm) 1.6 cm Est.ejection fraction (50-75%) % DOPPLER: LVIT cm/sec A cm/sec E cm/sec LA cm/sec RVSP mmHg LVOT cm/sec AOP1/2T m/s Asc. Ao cm/sec RVOT cm/sec RA cm/sec PA cm/sec AV Gradient Peak mmHg AV Mean mmHg AV Area cm MV Gradient Peak mmHg MV Mean mmHg MV Area cm COMMENTS: Hearing Aid Assistant: 2 KOBE RAWLS Coper Hand: 4 Dr. Sanchez TAPE# PACS Pericardial Effusion Y DATE OF SERVICE: LIMITED ECHOCARDIOGRAM Unfortunately, this is not diagnostic quality. Unable to comment on ejection fraction. Endocardial structures not visualized at all. Only epicardial structures are seen to any degree. There is not enough Doppler or color interrogation to make a definitive statement about function. I would recommend repeating the echo with contrast enhancement. ECHOCARDIOGRAM REPORT [id number] MARISSA RANKIN TRANSINT:[id number] Voice Confirmation ID: [id number] DOCUMENT ID: [id number] BON SANCHEZ MD at 0927 CC: [id number] DICTATION DATE: 12/31/17 0816 MEDIA MONITOR: 12/31/17 0851 ADM IN [facility] [address] [place] [address]
--- NOTE | ~2017-12-29 | PN ---
PATIENT:MARISSA RANKIN MEDICAL RECORD: [id number] LOCATION:D.ICU D.230 ADMISSION DATE: 12/29/17 PROGRESS NOTE DATE OF SERVICE: 02/13/2018 SUBJECTIVE: This is a 62-year-old female who has had history of metastatic lung carcinoma. The patient has had respiratory failure with hypoxia as well as hypercapnia and was intubated and subsequently had tracheostomy. The patient has had ongoing pneumonia and bleeding, requiring transfusions. The patient is awake. Her calcium level appears to be increasing, suggestive of bony metastatic disease from the lung carcinoma. She is currently DNR, on mechanical ventilation. PHYSICAL EXAMINATION: GENERAL: Reveals mildly somnolent obese female, who has intermittent jerks. VITAL SIGNS: Temperature 97.2, heart rate 97, blood pressure 148/71, saturation 97% on 50% FiO2. SHEENT: Unremarkable. NECK: Supple. CHEST: Shows some mild crackles, which appears to be transmitted there. CARDIAC: Shows no jugular venous distention, murmur, or gallop. ABDOMEN: Benign with no tenderness. EXTREMITIES: Show no clubbing, cyanosis, or edema. LABORATORY DATA: Shows white count is 6.9, hemoglobin of 8.5, and platelet count is 63,000. Arterial blood gas; pH 7.29, pCO2 of 42, pO2 of 73 on 50% FiO2, tidal volume of 600, and PEEP of 8. Chemistry is remarkable for sodium of 148, chloride is 116, bicarbonate 22, and calcium is 10.5. DIAGNOSTIC DATA: Chest x-ray showed multifocal airspace disease throughout both lungs and small left pleural effusion. There is no significant change from previous x-rays. ASSESSMENT: 1. Acute respiratory failure with hypercapnia and hypoxia, probably secondary to pneumonia as well as lung carcinoma and measured acids. The patient is currently on trach. 2. Pneumonia. This is probably secondary to immunocompromise from lung carcinoma. The patient is currently on IV antibiotic therapy. 3. Metastatic lung carcinoma with hypercalcemia. 4. Anemia secondary to chronic disease as well as blood loss. The patient has had multiple transfusions. Hemoglobin stable. 5. Thrombocytopenia, also secondary to lung carcinoma. DISCUSSION: NEUROPSYCHIATRY: The patient's mental status has remained stable. She appears to open eyes and to respond. The patient moves all extremities. She is not agitated. There are no focal signs. CARDIOVASCULAR: She is hemodynamically stable. No arrhythmias. PULMONARY/RESPIRATORY. The patient has multiple problems with lung carcinoma and pneumonia. The patient is on antibiotics. ONCOLOGY: The patient has lung carcinoma with anemia and thrombocytopenia. We will monitor platelet levels. There is no evidence of bleeding or petechia. PROGRESS NOTE [id number] MARISSA RANKIN PLAN: Ventilator support. Continue antibiotics and bronchodilators. Total time spent is 35 minutes. Discussion with respiratory therapy, bedside nurse, and . TRANSINT:[id number] Voice Confirmation ID: [id number] DOCUMENT ID: [id number] SCOTT SOLER at 0749 CC: [id number] DICTATION DATE: 02/13/18 1031 SKULL GRINDER: 02/13/18 1257 ADM IN [facility] [address] [place] [address]
--- NOTE | ~2017-12-29 | OP ---
PATIENT NAME: MARISSA RANKIN MEDICAL RECORD: [id number] :59 LOCATION:D.ICU D.2301 ADMISSION DATE:12/29/17 SURGEON: JONATHAN BUTLER MD DATE OF OPERATION: 01/14/2018 GEAR GRINDER'S NOTE: I assisted Dr. JOSIE Ramirez with the exploratory laparoscopy with conversion to exploratory laparotomy and drainage of abscesses. My involvement in the operation included running some of the camera. Assisting with the laparotomy incision which was a bilateral subcostal incision. Blunt dissection of the abdomen yielding at least 2 pockets of purulence; one was a right subphrenic abscess and the other was in the central abdomen. Some blunt dissection of the structures. Assistance with retraction. I then scrubbed out to perform the EGD. TRANSINT:[id number] Voice Confirmation ID: [id number] DOCUMENT ID: [id number] JONATHAN BUTLER MD at 1717 CC: [id number] DICTATION DATE: 01/15/181942 SANITATION TRUCK DRIVER: 01/15/182123 ADM IN [place] [address] [id number] [place] [address]
--- NOTE | ~2017-12-29 | PN ---
PATIENT:MARISSA RANKIN MEDICAL RECORD: [id number] LOCATION:D.ICU D.230 ADMISSION DATE: 12/29/17 PROGRESS NOTE DATE OF SERVICE: 02/12/2018 SUBJECTIVE: This is a 62-year-old female patient, who has a history of morbid obesity, essential hypertension, hypertension, and volume depletion. The patient was admitted with septic shock and right empyema. She had had laparoscopic sleeve surgery after a gastric banding was done. The patient was seen in the Emergency Room with respiratory failure and hypoxemia. She was also in septic shock and abdominal pain and possibility of gastric leak was detained. The patient was intubated and placed on antibiotics. She has had GI bleed. She has had anemia requiring transfusions. The patient recently had trach placed because of inability to wean. The patient had an uneventful night. There was no fever or chills. She was noted to have anemia this morning and mild metabolic acidosis. Ventilatory was changed from SIMV to assist control. The patient is awake and unresponsive. Appears to respond to verbal communication. She has been off sedation for a few days. PHYSICAL EXAMINATION: GENERAL: Reveals a moderately obese female, who is in no acute distress. VITAL SIGNS: Temperature 98.6, heart rate of 94, blood pressure 108/65, saturation 98%. SHEENT: Unremarkable. There is mild pallor. Pupils are equal and reactive. NECK: Supple. There is tracheostomy tube. No adenopathy. CHEST: Showed mild transmitted wheeze. HEART: Shows no jugular venous distention, murmur, or gallop. ABDOMEN: Benign, without any tenderness. EXTREMITIES: Show some clubbing, cyanosis, edema. LABORATORY DATA: Lab exam showed white count of 5.6, hemoglobin of 7.5, platelet count 66,000. Arterial blood gas: PH 7.22, pCO2 of 50.3, and pO2 is 49, FiO2 is 60%. Chemistries remarkable for sodium of 146, potassium is 4, carbon dioxide is 21, BUN is 106, creatinine is 1.8, GFR is 30. Ammonia is 47. Chest x-ray shows bilateral pneumonia. ASSESSMENT: 1. Acute respiratory failure with hypercapnia and hypoxia. The patient is on mechanical ventilation and will be switching from SIMV to assist control. 2. Anemia secondary to gastrointestinal bleed and thrombocytopenia. 3. Thrombocytopenia, that needs to be followed. Medications will be reviewed for the cause of this. The patient is not on any heparin or Lovenox. 4. Acute renal failure. This may be due to hypovolemia or sepsis with shock. 5. GI bleed. 6. Empyema. This is probably secondary to pneumonia. 7. History of carcinoma of the lingula, muq-cpaha-sqei carcinoma. 8. History of bariatric surgery. We will check vitamin B6 and 12 levels for possible supplementation. 9. Pneumonia bilaterally. Continue antibiotics. Bone marrow test and blood culture positive results. DISCUSSION: NEUROPSYCHIATRY: The patient's mental status is improving. She is more responsive today. There are no focal deficits. She has mild elevation of PROGRESS NOTE [id number] MARISSA RANKIN ammonia. CARDIOVASCULAR: There is no history of any issues at this time. PULMONARY/RESPIRATORY: The patient has pneumonia and respiratory failure. She has also had a history of zcf-txjux-fmto carcinoma. GASTROINTESTINAL/DIETARY: The patient is currently n.p.o. because of bleeding and possible ruptured gastric sleeve. We probably need to start Diflucan. PLAN: 1. Ventilatory support with assist control. Repeat arterial blood gas in an hour. 2. Vitamin B6 and B12 levels for possible supplementation. 3. Follow up CBC after transfusion for anemia and for thrombocytosis. 4. SCDs for DVT prophylaxis. 5. Add Diflucan for possible peritonitis. 6. Monitor platelet count. TRANSINT:[id number] Voice Confirmation ID: [id number] DOCUMENT ID: [id number] SCOTT SOLER at 0749 CC: [id number] DICTATION DATE: 02/12/18 1137 SLIPMAN: 02/12/18 1355 ADM IN [place] [id number] [place] [id number]
--- NOTE | ~2017-12-29 | OP ---
PATIENT NAME: MARISSA RANKIN MEDICAL RECORD: [id number] :59 LOCATION:.[facility] D.2302 ADMISSION DATE:12/29/17 SURGEON: ARTHUR BUTLER MD DATE OF OPERATION: 12/30/2017 PREOPERATIVE DIAGNOSES: 1. Septicemia. 2. Acute renal failure due to acute kidney injury. 3. Lack of peripheral IV blood draws. 4. Need of central venous pressure monitoring. POSTOPERATIVE DIAGNOSES: 1. Septicemia. 2. Acute renal failure due to acute kidney injury. 3. Lack of peripheral IV blood draws. 4. Need of central venous pressure monitoring. PROCEDURE: Insertion of right internal jugular triple lumen central venous catheter. SURGEON: Arthur Butler MD LANDSCAPE HORTICULTURE INSTRUCTOR: None. BLOOD LOSS: Minimal. The risks, possible complications, and alternatives to the procedure were explained to the patient. She elects to proceed. OPERATIVE COURSE: The patient was seen in her ICU bed. The entire procedure was performed in the presence of a female nurse. The right neck was sterilely prepped and draped. A local anesthetic was used to infiltrate the skin and subcutaneous tissues at the right neck. The hand-held ultrasound was brought onto the sterile field within a sterile sleeve. I was able to interrogate the right neck. I identified a compressible right internal jugular vein. This was percutaneously accessed in an antegrade fashion. A guidewire passed easily. A small skin edwin was accomplished. A vessel dilator was used to dilate the subcutaneous tract. A 16-cm triple lumen central venous catheter was inserted to the hub. It was sutured in place times 3. All lumens flushed easily and aspirated dark, nonpulsatile blood. A followup chest x-ray revealed no pneumothorax. A sterile dressing was applied. TRANSINT:[id number] Voice Confirmation ID: [id number] DOCUMENT ID: [id number] ARTHUR BUTLER MD at 1612 CC: [id number] DICTATION DATE: 12/30/17 1431 PADDED BOX SEWER: 12/30/17 1453 ADM IN [facility] [address] [id number]
--- NOTE | ~2017-12-29 | OP ---
PATIENT NAME: MARISSA RANKIN MEDICAL RECORD: [id number] :59 LOCATION:.[facility] D.2302 ADMISSION DATE:12/29/17 SURGEON: ANGELES GONZALES MD DATE OF OPERATION: 01/14/2018 SURGEON: Angeles Gonzales MD PREOPERATIVE DIAGNOSES: 1. Gastric perforation with intra-abdominal abscess. 2. Acute renal failure requiring hemodialysis. 3. Ventilatory dependent respiratory failure. 4. Septic shock. POSTOPERATIVE DIAGNOSES: 1. Gastric perforation with intraabdominal abscess. 2. Acute renal failure requiring hemodialysis. 3. Ventilator-dependent respiratory failure. 4. Septic shock. PROCEDURES PERFORMED: 1. Percutaneous tracheostomy with bronchoscopy. 2. Right subclavian CVL placement. 3. EGD. 4. Exploratory laparotomy, abdominal washout. 5. Negative pressure wound VAC therapy. CONTRACTING ANALYST SURGEON: Arthur Wood MD SPECIMENS: Case was grossly contaminated. ESTIMATED BLOOD LOSS: 500 cc. OPERATIVE COURSE: After consent was obtained, the patient was taken to the operating room and placed in supine position on the operating table. A shoulder roll was placed. A timeout was taken to confirm the correct patient and procedure, bronchoscopy was performed. The endotracheal tube was retracted. Local anesthetic was injected into the midline of the neck. External landmarks were palpated. Skin incision was made with a 15 blade scalpel. The needle and angiocatheter were then placed percutaneously through the trachea under direct bronchoscopic vision. The needle was identified. The needle was removed. The guidewire was passed through the angiocatheter under direct bronchoscopic vision, the angiocatheter was removed. The dilator was then passed over the wire in a standard Seldinger fashion. A 7-Kittitian tracheostomy tube was then passed over. The circuit was then immediately switched over to the tracheostomy tube. A bronchoscopy was performed through the tracheostomy. Tracheostomy was in good position and tidal CO2 was noted on the ventilator. Next, the tracheostomy was secured in place using 2-0 nylon suture. The chest was then prepped and draped in typical sterile fashion. A right subclavian stick was done, the vein was cannulated in the first pass. A wire was placed and it was removed. A skin incision was made with 11 blade scalpel. Dilator was passed through the wire in a standard Seldinger fashion. The catheter was passed through the wire in a standard Seldinger fashion. The wire was removed. All 3 ports were aspirated and flushed. A Biopatch was placed and secured to skin using 2-0 nylon suture and a sterile Tegaderm dressing. At this time, the abdomen was prepped and draped in typical sterile fashion. A trocar was placed OPERATIVE REPORT [id number] MARISSA RANKIN into the right upper quadrant. Using an optical trocar, the 5-mm optical trocar was used to enter the abdomen. The abdomen was insufflated. We are unable to visualize the abdomen due to severe abdominal wall inflammation and adhesions of the omentum. At this time, I decided to perform exploratory laparotomy, bilateral Chevron incisions were made. There were 2 large infected pockets identified, one in the right upper quadrant, one in the left upper quadrant. The loculations were opened with blunt dissection. Fluid and tissue cultures were obtained and then sent for microbiology. The abdominal cavity was copiously irrigated and suctioned. The previous YONI drain was removed from the right upper quadrant and a 19-Kittitian Khari drain was placed into the right upper quadrant. The posterior stomach was identified. At this time, an EGD was performed by Dr. Wood. Please see his procedure note for full details. The EGD was advanced to the esophagus using CO2 insufflation. It was advanced through both stents and into the antrum. It was then passed to the antrum in to the pylorus. The scope was withdrawn. The stents were overlapped at the area of the staple line disruption. At this time, the scope was removed and the EGD was terminated. Next, the ABThera wound VAC was placed into the abdominal cavity. The abdominal incision was left open. The VAC sponges were placed on top of the intra-abdominal, back and placed to suction with good seal. At the end of the case, all needles and instrument counts were correct. No complications occurred. The patient was transferred to the PACU in critical condition. TRANSINT:[id number] Voice Confirmation ID: [id number] DOCUMENT ID: [id number] ANGELES GONZALES MD at 0750 CC: [id number] DICTATION DATE: 01/14/182028 CARDIOLOGY PHYSICIAN ASSISTANT: 01/14/18 2300 ADM IN [id number] [place] [address]
--- NOTE | ~2017-12-29 | OP ---
PATIENT NAME: MARISSA RANKIN MEDICAL RECORD: [id number] :59 LOCATION:D[facility] D.2302 ADMISSION DATE:12/29/17 SURGEON: JONATHAN BUTLER MD DATE OF OPERATION: 12/31/2017 PREOPERATIVE DIAGNOSES: 1. Septicemia. 2. Septicemia secondary to a leak from a laparoscopic sleeve gastrectomy. PROCEDURES: 1. Esophagogastroduodenoscopy. 2. Placement of WallFlex partially covered esophageal stent, 23 mm x 105 mm under fluoroscopic guidance. 3. Immediate surgeon interpretation of fluoroscopic images. 4. Esophagogastrogram with immediate surgeon interpretation. 5. Placement of left supraclavicular subclavian Trialysis catheter placement. SURGEON: Jonathan Butler MD ORE ROASTER: None. BLOOD LOSS: Minimal. ANESTHESIA: General. DESCRIPTION OF PROCEDURE: I had a minor participation in the laparoscopy at the beginning of the operation as well as closure of some of the skin incisions. AIDA Rodriguez, was the first leveler. My involvement in assisting the abdominal portion of the operation included insertion of the lateral 2 most trocars. Some irrigation and aspiration. Some retraction of tissues as well as closure of several of the incisions and assistance with placement of the drains. I, however, was the sole surgeon regarding the above operative procedures. After the beginning of the operation with the intra-abdominal portion being performed, I was asked to perform esophagogastroduodenoscopy. A bite-block was inserted. CO2 endoscopy was performed. I advanced the gastroscope into the hypopharynx. The esophagus was easily intubated as was the stomach. We were able to identify the defect, which was high up in the stomach and this is better described in Dr. JOSIE Gonzales's operative note. He cut some of the imbrication sutures. This allowed me to advance into the antrum and then into the duodenum. I then advanced a 0.035 Jagwire. I withdrew the endoscope over the Jagwire and this was performed under fluoroscopy. There was no dislodgement of the Jagwire. The site of the leak had been marked by Dr. Gonzales. I then advanced a well-lubricated WallFlex esophageal stent and this was deployed under fluoroscopy. No radiologist was present for this procedure. Cine as well as static fluoroscopic images were obtained and these were kept in the PACS system. The deployment was performed. The deployment device and the Jagwire were removed. I then re-endoscoped the patient's esophagus and stomach. While performing an esophagogastrogram utilizing Gastrografin through the gastroscope, I did this at the distal end of the stent after doing this at the proximal end of the stent. The proximal end of the stent appeared to be sealed. The distal OPERATIVE REPORT [id number] MARISSA RANKIN end of the stent, when I injected the dye under pressure, there was flow of dye down through the sleeve into the antrum, also some extravasation of dye out through the gastric defect, which had previously been closed by Dr. Gonzales. Utilizing biopsy forceps, I tried to advance the esophageal stent, which was a partially covered stent and was unable to do so under fluoroscopic guidance. Dr. Gonzales then went about repairing the defect over the stent. Our hope is that the stent will migrate to some degree over the next few days or that that we will "stack" some stents. I then assisted with closure of some of the incisions as well as suturing the drains in place. The left neck was then sterilely prepped and draped. Utilizing a supraclavicular subclavian technique, the subclavian vein was percutaneously accessed in an antegrade fashion. A guidewire passed easily. A small skin edwin was accomplished. Vessel dilator was used to dilate a subcutaneous tract. A short Trialysis catheter was inserted to the hub. It was sutured in place times 3. All lumens flushed easily and aspirated dark, nonpulsatile blood. A chest x-ray will be obtained postoperatively. A sterile dressing was applied. TRANSINT:[id number] Voice Confirmation ID: [id number] DOCUMENT ID: [id number] JONATHAN BUTLER MD at 1612 CC: MARLIN ANNE MD, OBDULIA LEONE MD and ANGELES GONZALES MD [id number] DICTATION DATE: 12/31/17 1539 ENROLLMENT ELIGIBILITY REPRESENTATIVE: 12/31/17 1728 ADM IN [facility] [address] [place] [address]
--- NOTE | ~2017-12-29 | PRO ---
PATIENT:MARISSA RANKIN MEDICAL RECORD: [id number] : 59 LOCATION:D.[facility] D.2302 ADMISSION DATE: 12/29/17 PROCEDURE PERFORMED BY: RANDEE LOPEZ MD DATE OF PROCEDURE: 01/19/2018 PROCEDURE: Fiberoptic bronchoscopy. INDICATION: Ms. Rankin is a 62-year-old female who has respiratory failure post-abdominal abscess and laparotomy. The chest radiograph that shows worsening of the right lower lobe infiltrate. The right upper lobe infiltrate had atelectasis, improving. PROCEDURE IN DETAIL: After obtaining conscious sedation, the fiberoptic bronchoscope was passed through the tracheostomy tube. There were thick white yellowish secretions in the right main bronchus and the right upper lobe segments. The secretions were cleared. The bronchitic changes bled easily by touching by the bronchoscope. Inspecting the right upper lobe, right lower lobe, and right middle lobe there are no endobronchial lesions seen. The left main bronchus was normal. The subsegment to the left upper lobe lingula and left lower lobe were within normal range. No endobronchial lesion was seen. The white yellowish secretions were cleared off. Specimen washing was obtained and sent for routine culture and sensitivity, AFB and fungus and cytology. Overall, the patient tolerated the procedure very well. TRANSINT:[id number] Voice Confirmation ID: [id number] DOCUMENT ID: [id number] RANDEE LOPEZ MD at 1110 CC: [id number] DICTATION DATE: 01/19/18 1402 BEAD FILLER: 01/19/18 1437 [place] [address]
[~2017-12-29 13:50] MED LIST changes: +MEPERIDINE HCL50 MG PO; +ZOFRAN ODT4 MG/UDTAB PO
[2017-12-29 14:30] LABS: BASOPHILS 0.1 % (0-2); EOSINOPHILS 0 % (0-7); HEMATOCRIT 55.9 % (36.0-48.0); HEMOGLOBIN 18.1 g/dL (12-16); IMMATURE GRANULOCYTES 0.4 % (0-5); LYMPHOCYTES 7.6 % (15-50); MCH 30.2 pg (26.0-34.0); MCHC 32.4 g/dL (31.0-37.0); MCV 93.3 fL (80.0-100.0); MEAN PLATELET VOLUME 10.7 fL (7.4-10.4); MONOCYTES 6.5 % (2-11); NEUTROPHILS 85.4 % (40-80); PLATELET COUNT 258 10x3/uL (130-400); RBC 5.99 10x6/uL (4.00-5.40); RDW 14.6 % (11.5-14.5); WBC 10.4 10x3/uL (4.8-10.8)
[2017-12-29 14:43] LABS: ANION GAP 20.6 mmol/L (8-16); BILIRUBIN - TOTAL 2.28 mg/dL (0.2-1.3); CALCIUM 9.2 mg/dL (8.5-10.1); CREATININE - SERUM 2.9 mg/dL (0.6-1.3); POTASSIUM - SERUM 3.6 mmol/L (3.5-5.1)
[2017-12-30] VITALS (25 sets, daily range): BP systolic 89–121; BP diastolic 27–77
[2017-12-30 11:05] LABS: PROTEIN - URINE 205.7 mg/dL (0.0-11.9)
[2017-12-30 11:08] LABS: APPEARANCE CLOUDY (CLEAR); COLOR AMBER (YELLOW); NITRITE NEGATIVE (NEGATIVE); PROTEIN 1+ mg/dL (NEGATIVE)
[2017-12-30 11:09] LABS: BILIRUBIN 2+ (NEGATIVE); GLUCOSE 50 mg/dL (NEGATIVE); KETONE NEGATIVE (NEGATIVE); UROBILINOGEN NORMAL (NORMAL)
[2017-12-30 11:13] LABS: AMORPHOUS SEDIMENT >1+ /lpf (NONE SEEN); BACTERIA MODERATE /hpf (NONE SEEN); GRANULAR CAST 0-5 /lpf (NONE SEEN); HYALINE CAST 0-5 /lpf (NONE SEEN); MUCUS >1+ /lpf (NONE SEEN); WAXY CAST OCC /lpf (NONE SEEN); WHITE CELLS - URINE 0-5 /hpf (0-5)
[2017-12-30 14:01] LABS: BASOPHILS 0.2 % (0-2); EOSINOPHILS 0 % (0-7); HEMATOCRIT 48.9 % (36.0-48.0); HEMOGLOBIN 15.7 g/dL (12-16); IMMATURE GRANULOCYTES 1.1 % (0-5); LYMPHOCYTES 6.8 % (15-50); MCHC 32.1 g/dL (31.0-37.0); MCV 93.3 fL (80.0-100.0); MEAN PLATELET VOLUME 10.6 fL (7.4-10.4); MONOCYTES 12.3 % (2-11); NEUTROPHILS 79.6 % (40-80); PLATELET COUNT 224 10x3/uL (130-400); RBC 5.24 10x6/uL (4.00-5.40); RDW 14.9 % (11.5-14.5)
[2017-12-30 14:04] LABS: WBC 14.2 10x3/uL (4.8-10.8)
[2017-12-30 14:25] LABS: ALKALINE PHOSPHATASE 54 U/L (46-116); CALCIUM 7.7 mg/dL (8.5-10.1); CARBON DIOXIDE 23.3 mmol/L (21.0-32.0); CHLORIDE - SERUM 107 mmol/L (98-107); CKMB 22.5 U/L (0.0-3.6); MAGNESIUM - SERUM 2.1 mg/dL (1.8-2.4); PHOSPHOROUS 2.8 mg/dL (2.5-4.9); PROTEIN - SERUM 5.6 g/dL (6.4-8.2); SODIUM 141 mmol/L (136-145)
[2017-12-30 14:39] LABS: ALBUMIN 1.4 g/dL (3.4-5.0); ALT (SGPT) 25 U/L (10-68); CALC OSMOLALITY 291 mosm/kg (275-300); CREATINE KINASE 2661 UL (21-215); CREATININE - SERUM 4.4 mg/dL (0.6-1.3); GLUCOSE 84 mg/dL (74-106); UREA NITROGEN 47 mg/dL (7-18); eGFR NON AFRICAN AMERICAN 11 mL/min (90-120)
[2017-12-30 14:40] LABS: TROPONIN-I 0.071 ng/mL (0.000-0.060)
[2017-12-30 20:09] LABS: CKMB 33.2 U/L (0.0-3.6)
[2017-12-30 20:12] LABS: CREATINE KINASE 4189 UL (21-215)
[2017-12-30 20:13] LABS: TROPONIN-I 0.082 ng/mL (0.000-0.060)
[2017-12-30 22:55] LABS: ANION GAP 14.1 mmol/L (8-16); CALCIUM 7.3 mg/dL (8.5-10.1); CARBON DIOXIDE 24.9 mmol/L (21.0-32.0); CREATININE - SERUM 4.9 mg/dL (0.6-1.3)
[2017-12-31] VITALS (22 sets, daily range): BP systolic 88–129; BP diastolic 44–70; Ht 175.3 cm; Wt 81.4 kg
[2017-12-31 01:14] LABS: CKMB 24.5 U/L (0.0-3.6)
[2017-12-31 01:15] LABS: CREATINE KINASE 4376 UL (21-215); TROPONIN-I 0.083 ng/mL (0.000-0.060)
[2017-12-31 04:44] LABS: BASOPHILS 0.4 % (0-2); EOSINOPHILS 0 % (0-7); HEMATOCRIT 43.8 % (36.0-48.0); IMMATURE GRANULOCYTES 5.8 % (0-5); LYMPHOCYTES 6.3 % (15-50); MCH 29.4 pg (26.0-34.0); MCV 91.8 fL (80.0-100.0); MEAN PLATELET VOLUME 10.4 fL (7.4-10.4); MONOCYTES 14.3 % (2-11); NEUTROPHILS 73.2 % (40-80); RBC 4.77 10x6/uL (4.00-5.40); RDW 15.3 % (11.5-14.5); WBC 13.6 10x3/uL (4.8-10.8)
[2017-12-31 04:55] LABS: PLATELET COUNT 179 10x3/uL (130-400)
[2017-12-31 05:32] LABS: ALBUMIN 1.2 g/dL (3.4-5.0); ALKALINE PHOSPHATASE 54 U/L (46-116); ALT (SGPT) 22 U/L (10-68); CALC OSMOLALITY 300 mosm/kg (275-300); CALCIUM 7.4 mg/dL (8.5-10.1); CARBON DIOXIDE 21.5 mmol/L (21.0-32.0); CHLORIDE - SERUM 108 mmol/L (98-107); CREATINE KINASE 3970 UL (21-215); CREATININE - SERUM 5.3 mg/dL (0.6-1.3); GLUCOSE 95 mg/dL (74-106); MAGNESIUM - SERUM 2.1 mg/dL (1.8-2.4); PHOSPHOROUS 3.5 mg/dL (2.5-4.9); POTASSIUM - SERUM 4.1 mmol/L (3.5-5.1); PROTEIN - SERUM 5.1 g/dL (6.4-8.2); SODIUM 143 mmol/L (136-145); UREA NITROGEN 57 mg/dL (7-18); eGFR NON AFRICAN AMERICAN 9 mL/min (90-120)
[2017-12-31 05:33] LABS: CKMB 23.1 U/L (0.0-3.6)
[2018-01-01] VITALS (41 sets, daily range): BP systolic 84–112; BP diastolic 47–72
[2018-01-01 05:59] LABS: EOSINOPHILS 0.1 % (0-7); HEMATOCRIT 40.6 % (36.0-48.0); HEMOGLOBIN 13.1 g/dL (12-16); IMMATURE GRANULOCYTES 8.9 % (0-5); LYMPHOCYTES 6.4 % (15-50); MCH 29.3 pg (26.0-34.0); MCHC 32.3 g/dL (31.0-37.0); MCV 90.8 fL (80.0-100.0); MEAN PLATELET VOLUME 10.8 fL (7.4-10.4); MONOCYTES 14.9 % (2-11); NEUTROPHILS 68.7 % (40-80); PLATELET COUNT 169 10x3/uL (130-400); RBC 4.47 10x6/uL (4.00-5.40); RDW 15.7 % (11.5-14.5); WBC 14.3 10x3/uL (4.8-10.8)
[2018-01-01 06:29] LABS: ANION GAP 14.5 mmol/L (8-16); CALCIUM 8.2 mg/dL (8.5-10.1); CREATININE - SERUM 6.2 mg/dL (0.6-1.3); MAGNESIUM - SERUM 2.6 mg/dL (1.8-2.4); PHOSPHOROUS 4.3 mg/dL (2.5-4.9); POTASSIUM - SERUM 4.5 mmol/L (3.5-5.1)
[2018-01-02] VITALS (44 sets, daily range): BP systolic 80–126; BP diastolic 53–71
[2018-01-02 06:40] LABS: CALC OSMOLALITY 296 mosm/kg (275-300); CARBON DIOXIDE 24.5 mmol/L (21.0-32.0); CHLORIDE - SERUM 105 mmol/L (98-107); CREATINE KINASE 2340 UL (21-215); CREATININE - SERUM 5.8 mg/dL (0.6-1.3); GLUCOSE 120 mg/dL (74-106); MAGNESIUM - SERUM 2.6 mg/dL (1.8-2.4); POTASSIUM - SERUM 4.3 mmol/L (3.5-5.1); SODIUM 138 mmol/L (136-145); UREA NITROGEN 68 mg/dL (7-18); eGFR NON AFRICAN AMERICAN 8 mL/min (90-120)
[2018-01-02 06:42] LABS: CKMB 20.5 U/L (0.0-3.6)
[2018-01-02 06:48] LABS: HEMATOCRIT 44.2 % (36.0-48.0); HEMOGLOBIN 14.4 g/dL (12-16); MCH 29.4 pg (26.0-34.0); MCHC 32.6 g/dL (31.0-37.0); MCV 90.2 fL (80.0-100.0); MEAN PLATELET VOLUME 11.2 fL (7.4-10.4); PLATELET COUNT 148 10x3/uL (130-400); WBC 20.3 10x3/uL (4.8-10.8)
[2018-01-02 08:17] LABS: ANISOCYTOSIS OCC; EOSINOPHILS 1 % (0-7); LYMPHOCYTES 13 % (15-50); MONOCYTES 12 % (2-11); NEUTROPHILS 51 % (40-80); PLATELET ESTIMATE NORMAL; PLATELET MORPHOLOGY PLT CLUMPS PRESENT
[2018-01-02 12:18] LABS: HEPATITIS C ANTIBODY 0.1 (0.0-0.9)
[2018-01-03] VITALS (50 sets, daily range): BP systolic 86–116; BP diastolic 35–74
[2018-01-03 04:14] LABS: HEPATITIS BE ANTIGEN Negative (Negative)
[2018-01-03 05:34] LABS: HEMATOCRIT 37.5 % (36.0-48.0); HEMOGLOBIN 12.3 g/dL (12-16); LYMPHOCYTES 4.3 % (15-50); MCH 29.7 pg (26.0-34.0); MCHC 32.8 g/dL (31.0-37.0); MCV 90.6 fL (80.0-100.0); MEAN PLATELET VOLUME 10.7 fL (7.4-10.4); NEUTROPHILS 88.2 % (40-80); PLATELET COUNT 184 10x3/uL (130-400); RBC 4.14 10x6/uL (4.00-5.40); RDW 16.5 % (11.5-14.5)
[2018-01-03 06:25] LABS: ALKALINE PHOSPHATASE 71 U/L (46-116); ALT (SGPT) 20 U/L (10-68); BILIRUBIN - TOTAL 0.73 mg/dL (0.2-1.3); CARBON DIOXIDE 22.3 mmol/L (21.0-32.0); CHLORIDE - SERUM 104 mmol/L (98-107); CREATININE - SERUM 6.5 mg/dL (0.6-1.3); GLUCOSE 98 mg/dL (74-106); MAGNESIUM - SERUM 2.7 mg/dL (1.8-2.4); PROTEIN - SERUM 5.3 g/dL (6.4-8.2); SODIUM 139 mmol/L (136-145); VANCOMYCIN - RANDOM 14.6 ug/mL (10.0-20.0); eGFR NON AFRICAN AMERICAN 7 mL/min (90-120)
[2018-01-03 06:30] LABS: CALC OSMOLALITY 304 mosm/kg (275-300); CREATINE KINASE 1963 UL (21-215); POTASSIUM - SERUM 5.5 mmol/L (3.5-5.1); UREA NITROGEN 89 mg/dL (7-18)
[2018-01-03 06:57] LABS: CKMB 10.4 U/L (0.0-3.6)
[2018-01-03 13:30] LABS: HEPATITIS BE ANTIBODY Negative (Negative)
[2018-01-04] VITALS (65 sets, daily range): BP systolic 84–131; BP diastolic 34–80
[2018-01-04 05:29] LABS: HEMATOCRIT 37.6 % (36.0-48.0); HEMOGLOBIN 12.3 g/dL (12-16); MCH 29.3 pg (26.0-34.0); MCHC 32.7 g/dL (31.0-37.0); MCV 89.5 fL (80.0-100.0); MEAN PLATELET VOLUME 10.8 fL (7.4-10.4); PLATELET COUNT 210 10x3/uL (130-400); RDW 16.1 % (11.5-14.5); WBC 39.2 10x3/uL (4.8-10.8)
[2018-01-04 05:37] LABS: CALC OSMOLALITY 299 mosm/kg (275-300); CALCIUM 7.8 mg/dL (8.5-10.1); CARBON DIOXIDE 22.6 mmol/L (21.0-32.0); CHLORIDE - SERUM 101 mmol/L (98-107); CREATININE - SERUM 5.8 mg/dL (0.6-1.3); GLUCOSE 112 mg/dL (74-106); MAGNESIUM - SERUM 2.6 mg/dL (1.8-2.4); PHOSPHOROUS 5.6 mg/dL (2.5-4.9); POTASSIUM - SERUM 4.8 mmol/L (3.5-5.1); SODIUM 137 mmol/L (136-145); UREA NITROGEN 83 mg/dL (7-18); VANCOMYCIN - RANDOM 19.3 ug/mL (10.0-20.0); eGFR NON AFRICAN AMERICAN 8 mL/min (90-120)
[2018-01-04 05:38] LABS: CREATINE KINASE 1122 UL (21-215)
[2018-01-04 05:39] LABS: CKMB 3.4 U/L (0.0-3.6)
[2018-01-04 06:24] LABS: LYMPHOCYTES 8 % (15-50); MONOCYTES 11 % (2-11); NEUTROPHILS 50 % (40-80); PLATELET ESTIMATE NORMAL
[2018-01-05] VITALS (71 sets, daily range): BP systolic 72–127; BP diastolic 37–76
[2018-01-05 04:51] LABS: HEMATOCRIT 35.7 % (36.0-48.0); HEMOGLOBIN 11.7 g/dL (12-16); MCH 29.5 pg (26.0-34.0); MCHC 32.8 g/dL (31.0-37.0); MCV 89.9 fL (80.0-100.0); PLATELET COUNT 246 10x3/uL (130-400); RBC 3.97 10x6/uL (4.00-5.40); RDW 15.8 % (11.5-14.5); WBC 42.3 10x3/uL (4.8-10.8)
[2018-01-05 04:55] LABS: EOSINOPHILS 1 % (0-7); LYMPHOCYTES 6 % (15-50); MONOCYTES 6 % (2-11); NEUTROPHILS 83 % (40-80); PLATELET ESTIMATE NORMAL
[2018-01-05 05:28] LABS: CALC OSMOLALITY 298 mosm/kg (275-300); CALCIUM 7.9 mg/dL (8.5-10.1); CHLORIDE - SERUM 100 mmol/L (98-107); CREATININE - SERUM 5.6 mg/dL (0.6-1.3); GLUCOSE 109 mg/dL (74-106); MAGNESIUM - SERUM 2.5 mg/dL (1.8-2.4); POTASSIUM - SERUM 4.8 mmol/L (3.5-5.1); SODIUM 137 mmol/L (136-145); UREA NITROGEN 81 mg/dL (7-18); eGFR NON AFRICAN AMERICAN 8 mL/min (90-120)
[2018-01-05 05:45] LABS: CREATINE KINASE 649 UL (21-215); PHOSPHOROUS 7.6 mg/dL (2.5-4.9)
[2018-01-05 05:49] LABS: CKMB 1.9 U/L (0.0-3.6)
[2018-01-05 15:29] LABS: PROTEIN - BODY FLUID 3.3 G/DL
[2018-01-05 15:58] LABS: NEUT - BF 59 %
[2018-01-06] VITALS (85 sets, daily range): BP systolic 86–125; BP diastolic 34–67
[2018-01-06 04:34] LABS: VANCOMYCIN - RANDOM 18.6 ug/mL (10.0-20.0)
[2018-01-06 04:40] LABS: CKMB 1.3 U/L (0.0-3.6); CREATINE KINASE 445 UL (21-215)
[2018-01-06 06:20] LABS: HEMOGLOBIN 11.3 g/dL (12-16); MCH 29.4 pg (26.0-34.0); MCHC 33.2 g/dL (31.0-37.0); MCV 88.3 fL (80.0-100.0); NEUTROPHILS 91.2 % (40-80); PLATELET COUNT 277 10x3/uL (130-400); RBC 3.85 10x6/uL (4.00-5.40); RDW 16.1 % (11.5-14.5); WBC 39.7 10x3/uL (4.8-10.8)
[2018-01-06 06:24] LABS: ANION GAP 18.7 mmol/L (8-16); BILIRUBIN - TOTAL 0.64 mg/dL (0.2-1.3); CALCIUM 7.8 mg/dL (8.5-10.1); CARBON DIOXIDE 22.7 mmol/L (21.0-32.0); CREATININE - SERUM 4.9 mg/dL (0.6-1.3); MAGNESIUM - SERUM 2.3 mg/dL (1.8-2.4); POTASSIUM - SERUM 4.4 mmol/L (3.5-5.1)
[2018-01-07] VITALS (96 sets, daily range): BP systolic 73–111; BP diastolic 26–92
[2018-01-07 03:51] LABS: HEMATOCRIT 31.7 % (36.0-48.0); HEMOGLOBIN 10.3 g/dL (12-16); MCH 29.2 pg (26.0-34.0); MCHC 32.5 g/dL (31.0-37.0); MCV 89.8 fL (80.0-100.0); MEAN PLATELET VOLUME 10.2 fL (7.4-10.4); PLATELET COUNT 310 10x3/uL (130-400); RBC 3.53 10x6/uL (4.00-5.40); RDW 16.1 % (11.5-14.5); WBC 34.3 10x3/uL (4.8-10.8)
[2018-01-07 03:53] LABS: BASOPHILS 1 % (0-2); LYMPHOCYTES 15 % (15-50); MONOCYTES 10 % (2-11); NEUTROPHILS 57 % (40-80)
[2018-01-07 03:54] LABS: PLATELET ESTIMATE NORMAL
[2018-01-07 04:14] LABS: ANION GAP 19.7 mmol/L (8-16); BILIRUBIN - TOTAL 0.56 mg/dL (0.2-1.3); CALCIUM 7.8 mg/dL (8.5-10.1); CARBON DIOXIDE 21.2 mmol/L (21.0-32.0); CREATININE - SERUM 5.5 mg/dL (0.6-1.3); MAGNESIUM - SERUM 2.4 mg/dL (1.8-2.4); POTASSIUM - SERUM 4.9 mmol/L (3.5-5.1); PROTEIN - SERUM 5.8 g/dL (6.4-8.2); VANCOMYCIN - RANDOM 17.2 ug/mL (10.0-20.0)
[2018-01-08] VITALS (95 sets, daily range): BP systolic 74–121; BP diastolic 27–91
[2018-01-08 05:12] LABS: BASOPHILS 1.1 % (0-2); EOSINOPHILS 0.7 % (0-7); HEMATOCRIT 31.8 % (36.0-48.0); HEMOGLOBIN 10.2 g/dL (12-16); IMMATURE GRANULOCYTES 17.3 % (0-5); LYMPHOCYTES 4.8 % (15-50); MCH 29.1 pg (26.0-34.0); MCHC 32.1 g/dL (31.0-37.0); MCV 90.6 fL (80.0-100.0); MEAN PLATELET VOLUME 10.1 fL (7.4-10.4); NEUTROPHILS 69.1 % (40-80); PLATELET COUNT 340 10x3/uL (130-400); RBC 3.51 10x6/uL (4.00-5.40); RDW 16.1 % (11.5-14.5); WBC 31.3 10x3/uL (4.8-10.8)
[2018-01-08 05:38] LABS: ANION GAP 22.2 mmol/L (8-16); BILIRUBIN - TOTAL 0.61 mg/dL (0.2-1.3); CALCIUM 7.6 mg/dL (8.5-10.1); CARBON DIOXIDE 19.6 mmol/L (21.0-32.0); CREATININE - SERUM 5.7 mg/dL (0.6-1.3); MAGNESIUM - SERUM 2.4 mg/dL (1.8-2.4); POTASSIUM - SERUM 4.8 mmol/L (3.5-5.1); PROTEIN - SERUM 6.1 g/dL (6.4-8.2); VANCOMYCIN - RANDOM 14.4 ug/mL (10.0-20.0)
[2018-01-08 05:39] LABS: ALBUMIN 1.4 g/dL (3.4-5.0)
[2018-01-08 05:40] LABS: PHOSPHOROUS 12.9 mg/dL (2.5-4.9)
[2018-01-09] VITALS (44 sets, daily range): BP systolic 70–118; BP diastolic 36–78
[2018-01-09 03:52] LABS: HEMATOCRIT 27.2 % (36.0-48.0); RBC 3.12 10x6/uL (4.00-5.40); WBC 26.2 10x3/uL (4.8-10.8)
[2018-01-09 03:53] LABS: BASOPHILS 0.5 % (0-2); EOSINOPHILS 0.6 % (0-7); LYMPHOCYTES 4.2 % (15-50); MCH 28.8 pg (26.0-34.0); MCHC 33.1 g/dL (31.0-37.0); MCV 87.2 fL (80.0-100.0); MEAN PLATELET VOLUME 9.8 fL (7.4-10.4); MONOCYTES 6.7 % (2-11); PLATELET COUNT 343 10x3/uL (130-400); RDW 15.5 % (11.5-14.5)
[2018-01-09 04:20] LABS: ALBUMIN 1.6 g/dL (3.4-5.0); BILIRUBIN - TOTAL 0.75 mg/dL (0.2-1.3); CALCIUM 7.3 mg/dL (8.5-10.1); POTASSIUM - SERUM 4.1 mmol/L (3.5-5.1); PROTEIN - SERUM 5.9 g/dL (6.4-8.2); VANCOMYCIN - RANDOM 19.1 ug/mL (10.0-20.0)
[2018-01-09 04:22] LABS: ANION GAP 18.3 mmol/L (8-16); CARBON DIOXIDE 24.8 mmol/L (21.0-32.0); PHOSPHOROUS 9.7 mg/dL (2.5-4.9)
[2018-01-10] VITALS (71 sets, daily range): BP systolic 71–125; BP diastolic 29–94
[2018-01-10 05:22] LABS: BASOPHILS 0.3 % (0-2); EOSINOPHILS 0.6 % (0-7); HEMATOCRIT 26.6 % (36.0-48.0); HEMOGLOBIN 8.6 g/dL (12-16); IMMATURE GRANULOCYTES 7.9 % (0-5); LYMPHOCYTES 4.6 % (15-50); MCH 28.5 pg (26.0-34.0); MCHC 32.3 g/dL (31.0-37.0); MCV 88.1 fL (80.0-100.0); MEAN PLATELET VOLUME 9.5 fL (7.4-10.4); MONOCYTES 5.9 % (2-11); NEUTROPHILS 80.7 % (40-80); PLATELET COUNT 337 10x3/uL (130-400); RBC 3.02 10x6/uL (4.00-5.40); RDW 15.6 % (11.5-14.5); WBC 21.5 10x3/uL (4.8-10.8)
[2018-01-10 05:31] LABS: ALBUMIN 1.8 g/dL (3.4-5.0); ANION GAP 19.1 mmol/L (8-16); BILIRUBIN - TOTAL 0.7 mg/dL (0.2-1.3); CALCIUM 7.1 mg/dL (8.5-10.1); CARBON DIOXIDE 25.9 mmol/L (21.0-32.0); CREATININE - SERUM 5.3 mg/dL (0.6-1.3); VANCOMYCIN - RANDOM 22.2 ug/mL (10.0-20.0)
[2018-01-10 05:46] LABS: PHOSPHOROUS 11.2 mg/dL (2.5-4.9)
[2018-01-10 12:41] LABS: CREATINE KINASE 391 UL (21-215)
[2018-01-10 12:49] LABS: CKMB 3.6 U/L (0.0-3.6)
[2018-01-11] VITALS (25 sets, daily range): BP systolic 86–113; BP diastolic 42–85
[2018-01-11 07:11] LABS: BASOPHILS 0.2 % (0-2); EOSINOPHILS 0 % (0-7); HEMATOCRIT 23.3 % (36.0-48.0); HEMOGLOBIN 7.7 g/dL (12-16); LYMPHOCYTES 5.1 % (15-50); MCH 28.8 pg (26.0-34.0); MCV 87.3 fL (80.0-100.0); MEAN PLATELET VOLUME 9.6 fL (7.4-10.4); MONOCYTES 2.8 % (2-11); NEUTROPHILS 86.9 % (40-80); PLATELET COUNT 312 10x3/uL (130-400); RBC 2.67 10x6/uL (4.00-5.40); RDW 15.5 % (11.5-14.5); WBC 19.9 10x3/uL (4.8-10.8)
[2018-01-11 07:15] LABS: ANION GAP 20.4 mmol/L (8-16); CARBON DIOXIDE 21.9 mmol/L (21.0-32.0); CREATININE - SERUM 5.3 mg/dL (0.6-1.3); POTASSIUM - SERUM 4.3 mmol/L (3.5-5.1); VANCOMYCIN - RANDOM 16.9 ug/mL (10.0-20.0)
[2018-01-11 07:37] LABS: CALCIUM 6.9 mg/dL (8.5-10.1)
[2018-01-11 21:03] LABS: HEMOGLOBIN 8.2 g/dL (12-16)
[2018-01-12] VITALS (32 sets, daily range): BP systolic 90–122; BP diastolic 45–80
[2018-01-12 05:45] LABS: BASOPHILS 0.2 % (0-2); EOSINOPHILS 0 % (0-7); HEMATOCRIT 25.5 % (36.0-48.0); HEMOGLOBIN 8.5 g/dL (12-16); IMMATURE GRANULOCYTES 6.2 % (0-5); LYMPHOCYTES 3.9 % (15-50); MCHC 33.3 g/dL (31.0-37.0); MEAN PLATELET VOLUME 9.5 fL (7.4-10.4); MONOCYTES 4.4 % (2-11); NEUTROPHILS 85.3 % (40-80); PLATELET COUNT 330 10x3/uL (130-400); RBC 2.93 10x6/uL (4.00-5.40); RDW 15.2 % (11.5-14.5)
[2018-01-12 06:07] LABS: ANION GAP 23.9 mmol/L (8-16); CARBON DIOXIDE 21.8 mmol/L (21.0-32.0); CREATININE - SERUM 5.5 mg/dL (0.6-1.3); POTASSIUM - SERUM 4.7 mmol/L (3.5-5.1); VANCOMYCIN - RANDOM 16.1 ug/mL (10.0-20.0)
[2018-01-12 06:15] LABS: CALCIUM 6.8 mg/dL (8.5-10.1); PHOSPHOROUS 12.7 mg/dL (2.5-4.9)
[2018-01-13] VITALS (41 sets, daily range): BP systolic 76–115; BP diastolic 31–74
[2018-01-13 04:56] LABS: BASOPHILS 0.2 % (0-2); EOSINOPHILS 0.4 % (0-7); HEMATOCRIT 23.9 % (36.0-48.0); HEMOGLOBIN 8.1 g/dL (12-16); IMMATURE GRANULOCYTES 5.1 % (0-5); LYMPHOCYTES 7.4 % (15-50); MCH 29.2 pg (26.0-34.0); MCHC 33.9 g/dL (31.0-37.0); MCV 86.3 fL (80.0-100.0); MONOCYTES 9.7 % (2-11); NEUTROPHILS 77.2 % (40-80); PLATELET COUNT 352 10x3/uL (130-400); RBC 2.77 10x6/uL (4.00-5.40); RDW 15.1 % (11.5-14.5)
[2018-01-13 05:15] LABS: ANION GAP 16.2 mmol/L (8-16); CARBON DIOXIDE 27.1 mmol/L (21.0-32.0); CREATININE - SERUM 4.4 mg/dL (0.6-1.3); VANCOMYCIN - RANDOM 12.9 ug/mL (10.0-20.0)
[2018-01-13 05:21] LABS: PHOSPHOROUS 9.6 mg/dL (2.5-4.9); POTASSIUM - SERUM 3.3 mmol/L (3.5-5.1)
[2018-01-13 12:08] LABS: AFB SPECIMEN PROCESSING Concentration (())
[2018-01-14] VITALS (75 sets, daily range): BP systolic 80–166; BP diastolic 37–78
[2018-01-14 04:45] LABS: HEMATOCRIT 25.7 % (36.0-48.0); HEMOGLOBIN 8.4 g/dL (12-16); MCH 28.7 pg (26.0-34.0); MCHC 32.7 g/dL (31.0-37.0); MCV 87.7 fL (80.0-100.0); MEAN PLATELET VOLUME 8.6 fL (7.4-10.4); PLATELET COUNT 327 10x3/uL (130-400); RBC 2.93 10x6/uL (4.00-5.40); RDW 15.1 % (11.5-14.5); WBC 25.2 10x3/uL (4.8-10.8)
[2018-01-14 05:30] LABS: LYMPHOCYTES 9 % (15-50); MONOCYTES 1 % (2-11); NEUTROPHILS 86 % (40-80); PLATELET ESTIMATE NORMAL
[2018-01-14 05:40] LABS: ANION GAP 20.8 mmol/L (8-16); CARBON DIOXIDE 24.6 mmol/L (21.0-32.0); CREATININE - SERUM 4.1 mg/dL (0.6-1.3); POTASSIUM - SERUM 3.4 mmol/L (3.5-5.1); VANCOMYCIN - RANDOM 12.1 ug/mL (10.0-20.0)
[2018-01-14 05:48] LABS: PHOSPHOROUS 9.5 mg/dL (2.5-4.9)
[2018-01-14 05:49] LABS: CALCIUM 6.6 mg/dL (8.5-10.1)
[2018-01-14 07:09] LABS: APTT 36.5 SECONDS (22.8-39.4); INR 1.24 (0.85-1.17); PROTIME 15.1 SECONDS (11.6-15.0)
[2018-01-14 18:46] LABS: HEMATOCRIT 23.1 % (36.0-48.0); HEMOGLOBIN 7.7 g/dL (12-16); MCH 29.5 pg (26.0-34.0); MCHC 33.3 g/dL (31.0-37.0); MCV 88.5 fL (80.0-100.0); MEAN PLATELET VOLUME 8.8 fL (7.4-10.4); PLATELET COUNT 293 10x3/uL (130-400); RBC 2.61 10x6/uL (4.00-5.40); RDW 15.4 % (11.5-14.5)
[2018-01-14 20:08] LABS: AEROBE ID Final report (())
[2018-01-14 22:44] LABS: EOSINOPHILS 3 % (0-7); LYMPHOCYTES 8 % (15-50); MONOCYTES 1 % (2-11); NEUTROPHILS 88 % (40-80); PLATELET ESTIMATE NORMAL
[2018-01-15] VITALS (87 sets, daily range): BP systolic 73–147; BP diastolic 45–83
[2018-01-15 04:05] LABS: BASOPHILS 0.1 % (0-2); EOSINOPHILS 0.1 % (0-7); IMMATURE GRANULOCYTES 1.5 % (0-5); LYMPHOCYTES 2.1 % (15-50); MCH 28.8 pg (26.0-34.0); MCHC 32.7 g/dL (31.0-37.0); MEAN PLATELET VOLUME 8.9 fL (7.4-10.4); MONOCYTES 4.5 % (2-11); NEUTROPHILS 91.7 % (40-80); PLATELET COUNT 224 10x3/uL (130-400); RDW 15.8 % (11.5-14.5); WBC 23.5 10x3/uL (4.8-10.8)
[2018-01-15 04:07] LABS: HEMOGLOBIN 7.2 g/dL (12-16)
[2018-01-15 04:20] LABS: ANION GAP 16.5 mmol/L (8-16); CREATININE - SERUM 4.4 mg/dL (0.6-1.3); POTASSIUM - SERUM 3.5 mmol/L (3.5-5.1); VANCOMYCIN - RANDOM 15.3 ug/mL (10.0-20.0)
[2018-01-15 04:32] LABS: CALCIUM 6.3 mg/dL (8.5-10.1); PHOSPHOROUS 9.8 mg/dL (2.5-4.9)
[2018-01-15 04:38] LABS: ALBUMIN 2.3 g/dL (3.4-5.0)
[2018-01-15 08:21] LABS: HEMATOCRIT 25.2 % (36.0-48.0); HEMOGLOBIN 8.3 g/dL (12-16)
[2018-01-15 18:38] LABS: HEMATOCRIT 22.6 % (36.0-48.0); HEMOGLOBIN 7.6 g/dL (12-16)
[2018-01-16] VITALS (65 sets, daily range): BP systolic 77–142; BP diastolic 7–90
[2018-01-16 04:03] LABS: BASOPHILS 0.1 % (0-2); EOSINOPHILS 0.1 % (0-7); HEMATOCRIT 23.9 % (36.0-48.0); IMMATURE GRANULOCYTES 2.1 % (0-5); LYMPHOCYTES 3.4 % (15-50); MCH 28.8 pg (26.0-34.0); MCHC 33.5 g/dL (31.0-37.0); MEAN PLATELET VOLUME 8.7 fL (7.4-10.4); MONOCYTES 4.2 % (2-11); NEUTROPHILS 90.1 % (40-80); PLATELET COUNT 175 10x3/uL (130-400); RBC 2.78 10x6/uL (4.00-5.40); RDW 16.2 % (11.5-14.5); WBC 20.7 10x3/uL (4.8-10.8)
[2018-01-16 04:08] LABS: INR 1.39 (0.85-1.17); PROTIME 16.6 SECONDS (11.6-15.0)
[2018-01-16 04:09] LABS: APTT 37.9 SECONDS (22.8-39.4)
[2018-01-16 04:14] LABS: ANION GAP 17.4 mmol/L (8-16); CALCIUM 7.1 mg/dL (8.5-10.1); CARBON DIOXIDE 25.9 mmol/L (21.0-32.0); CREATININE - SERUM 4.3 mg/dL (0.6-1.3); POTASSIUM - SERUM 3.3 mmol/L (3.5-5.1); VANCOMYCIN - RANDOM 19.4 ug/mL (10.0-20.0)
[2018-01-16 09:54] LABS: MAGNESIUM - SERUM 1.1 mg/dL (1.8-2.4); PHOSPHOROUS 9.3 mg/dL (2.5-4.9)
[2018-01-16 10:19] LABS: FUNGUS STAIN Final report (())
[2018-01-16 16:27] LABS: HEMATOCRIT 25.5 % (36.0-48.0); HEMOGLOBIN 8.8 g/dL (12-16)
[2018-01-17] VITALS (21 sets, daily range): BP systolic 87–160; BP diastolic 44–117
[2018-01-17 04:56] LABS: BASOPHILS 0.2 % (0-2); EOSINOPHILS 0.7 % (0-7); HEMATOCRIT 26.1 % (36.0-48.0); HEMOGLOBIN 8.8 g/dL (12-16); IMMATURE GRANULOCYTES 2.9 % (0-5); LYMPHOCYTES 5.7 % (15-50); MCH 28.9 pg (26.0-34.0); MCHC 33.7 g/dL (31.0-37.0); MCV 85.6 fL (80.0-100.0); MEAN PLATELET VOLUME 9.1 fL (7.4-10.4); NEUTROPHILS 84.5 % (40-80); PLATELET COUNT 182 10x3/uL (130-400); RBC 3.05 10x6/uL (4.00-5.40); RDW 16.6 % (11.5-14.5); WBC 17.4 10x3/uL (4.8-10.8)
[2018-01-17 05:05] LABS: ALBUMIN 2.6 g/dL (3.4-5.0); ANION GAP 17.2 mmol/L (8-16); BILIRUBIN - TOTAL 0.65 mg/dL (0.2-1.3); CALCIUM 7.7 mg/dL (8.5-10.1); CARBON DIOXIDE 26.4 mmol/L (21.0-32.0); CREATININE - SERUM 4.3 mg/dL (0.6-1.3); POTASSIUM - SERUM 3.6 mmol/L (3.5-5.1); PROTEIN - SERUM 6.3 g/dL (6.4-8.2)
[2018-01-17 07:46] LABS: MAGNESIUM - SERUM 1.5 mg/dL (1.8-2.4)
[2018-01-17 19:13] LABS: AFB SPECIMEN PROCESSING Concentration (())
[2018-01-17 20:09] LABS: AEROBE ID Final report (())
[2018-01-18] VITALS (26 sets, daily range): BP systolic 87–139; BP diastolic 44–97
[2018-01-18 07:30] LABS: BASOPHILS 0.2 % (0-2); EOSINOPHILS 1.8 % (0-7); HEMATOCRIT 25.2 % (36.0-48.0); HEMOGLOBIN 8.3 g/dL (12-16); IMMATURE GRANULOCYTES 2.3 % (0-5); LYMPHOCYTES 5.1 % (15-50); MCH 28.8 pg (26.0-34.0); MCHC 32.9 g/dL (31.0-37.0); MCV 87.5 fL (80.0-100.0); MEAN PLATELET VOLUME 8.8 fL (7.4-10.4); MONOCYTES 11.7 % (2-11); NEUTROPHILS 78.9 % (40-80); PLATELET COUNT 162 10x3/uL (130-400); RBC 2.88 10x6/uL (4.00-5.40); RDW 16.7 % (11.5-14.5); WBC 11.5 10x3/uL (4.8-10.8)
[2018-01-18 07:50] LABS: ALBUMIN 2.5 g/dL (3.4-5.0); ANION GAP 17.9 mmol/L (8-16); BILIRUBIN - TOTAL 0.61 mg/dL (0.2-1.3); CALCIUM 7.3 mg/dL (8.5-10.1); CARBON DIOXIDE 28.4 mmol/L (21.0-32.0); CREATININE - SERUM 4.2 mg/dL (0.6-1.3); POTASSIUM - SERUM 3.3 mmol/L (3.5-5.1)
[2018-01-18 10:50] LABS: MAGNESIUM - SERUM 1.5 mg/dL (1.8-2.4); PHOSPHOROUS 8.5 mg/dL (2.5-4.9)
[2018-01-18 12:17] LABS: FUNGUS STAIN Final report (())
[2018-01-19] VITALS (24 sets, daily range): BP systolic 89–174; BP diastolic 45–95
[2018-01-19 04:56] LABS: BASOPHILS 0.2 % (0-2); EOSINOPHILS 0.7 % (0-7); HEMATOCRIT 23.8 % (36.0-48.0); HEMOGLOBIN 7.7 g/dL (12-16); IMMATURE GRANULOCYTES 1.7 % (0-5); MCH 28.8 pg (26.0-34.0); MCHC 32.4 g/dL (31.0-37.0); MCV 89.1 fL (80.0-100.0); MEAN PLATELET VOLUME 8.8 fL (7.4-10.4); MONOCYTES 4.8 % (2-11); NEUTROPHILS 79.6 % (40-80); PLATELET COUNT 150 10x3/uL (130-400); RBC 2.67 10x6/uL (4.00-5.40); WBC 10.5 10x3/uL (4.8-10.8)
[2018-01-19 05:22] LABS: ANION GAP 13.5 mmol/L (8-16); CALCIUM 7.4 mg/dL (8.5-10.1); CARBON DIOXIDE 30.8 mmol/L (21.0-32.0); CREATININE - SERUM 3.9 mg/dL (0.6-1.3); MAGNESIUM - SERUM 1.3 mg/dL (1.8-2.4); PHOSPHOROUS 8.4 mg/dL (2.5-4.9); POTASSIUM - SERUM 3.3 mmol/L (3.5-5.1); VANCOMYCIN - RANDOM 19.7 ug/mL (10.0-20.0)
[2018-01-20] VITALS (24 sets, daily range): BP systolic 101–155; BP diastolic 43–97
[2018-01-20 05:21] LABS: BASOPHILS 0.1 % (0-2); EOSINOPHILS 0.7 % (0-7); HEMATOCRIT 25.8 % (36.0-48.0); HEMOGLOBIN 8.3 g/dL (12-16); IMMATURE GRANULOCYTES 1.9 % (0-5); LYMPHOCYTES 8.8 % (15-50); MCH 28.9 pg (26.0-34.0); MCHC 32.2 g/dL (31.0-37.0); MCV 89.9 fL (80.0-100.0); MEAN PLATELET VOLUME 8.5 fL (7.4-10.4); MONOCYTES 3.3 % (2-11); NEUTROPHILS 85.2 % (40-80); PLATELET COUNT 142 10x3/uL (130-400); RBC 2.87 10x6/uL (4.00-5.40); RDW 16.8 % (11.5-14.5)
[2018-01-20 05:25] LABS: WBC 13.6 10x3/uL (4.8-10.8)
[2018-01-20 05:36] LABS: ANION GAP 11.7 mmol/L (8-16); CALCIUM 7.4 mg/dL (8.5-10.1); CARBON DIOXIDE 32.5 mmol/L (21.0-32.0); CREATININE - SERUM 3.4 mg/dL (0.6-1.3); MAGNESIUM - SERUM 1.5 mg/dL (1.8-2.4); PHOSPHOROUS 7.2 mg/dL (2.5-4.9); POTASSIUM - SERUM 3.2 mmol/L (3.5-5.1); VANCOMYCIN - RANDOM 19.5 ug/mL (10.0-20.0)
[2018-01-21] VITALS (21 sets, daily range): BP systolic 99–153; BP diastolic 52–94
[2018-01-21 04:33] LABS: BASOPHILS 0.2 % (0-2); EOSINOPHILS 1.1 % (0-7); HEMATOCRIT 27.7 % (36.0-48.0); HEMOGLOBIN 8.6 g/dL (12-16); IMMATURE GRANULOCYTES 2.2 % (0-5); LYMPHOCYTES 8.8 % (15-50); MCH 28.9 pg (26.0-34.0); MONOCYTES 2.7 % (2-11); RBC 2.98 10x6/uL (4.00-5.40); WBC 15.6 10x3/uL (4.8-10.8)
[2018-01-21 04:34] LABS: PLATELET COUNT 178 10x3/uL (130-400)
[2018-01-21 04:52] LABS: ANION GAP 12.3 mmol/L (8-16); CREATININE - SERUM 3.1 mg/dL (0.6-1.3); MAGNESIUM - SERUM 1.3 mg/dL (1.8-2.4); POTASSIUM - SERUM 3.3 mmol/L (3.5-5.1); VANCOMYCIN - RANDOM 21.4 ug/mL (10.0-20.0)
[2018-01-22] VITALS (25 sets, daily range): BP systolic 108–167; BP diastolic 59–96
[2018-01-22 05:05] LABS: BASOPHILS 0.2 % (0-2); EOSINOPHILS 1.3 % (0-7); HEMATOCRIT 28.2 % (36.0-48.0); HEMOGLOBIN 8.8 g/dL (12-16); IMMATURE GRANULOCYTES 2.2 % (0-5); LYMPHOCYTES 9.9 % (15-50); MCH 29.3 pg (26.0-34.0); MCHC 31.2 g/dL (31.0-37.0); MEAN PLATELET VOLUME 9.1 fL (7.4-10.4); MONOCYTES 3.4 % (2-11); PLATELET COUNT 198 10x3/uL (130-400); RDW 17.1 % (11.5-14.5); WBC 13.1 10x3/uL (4.8-10.8)
[2018-01-22 05:22] LABS: ANION GAP 10.3 mmol/L (8-16); CALCIUM 8.1 mg/dL (8.5-10.1); PHOSPHOROUS 6.8 mg/dL (2.5-4.9); POTASSIUM - SERUM 3.3 mmol/L (3.5-5.1); VANCOMYCIN - RANDOM 22.2 ug/mL (10.0-20.0)
[2018-01-22 05:32] LABS: MAGNESIUM - SERUM 1.7 mg/dL (1.8-2.4)
[2018-01-22 19:07] LABS: AFB SPECIMEN PROCESSING Concentration (())
[2018-01-22 19:07] LABS: AFB SPECIMEN PROCESSING Concentration (())
[2018-01-23] VITALS (26 sets, daily range): BP systolic 130–165; BP diastolic 4–99
[2018-01-23 04:28] LABS: BASOPHILS 0.4 % (0-2); EOSINOPHILS 1.5 % (0-7); HEMATOCRIT 26.9 % (36.0-48.0); HEMOGLOBIN 8.2 g/dL (12-16); IMMATURE GRANULOCYTES 2.3 % (0-5); MCH 28.8 pg (26.0-34.0); MCHC 30.5 g/dL (31.0-37.0); MCV 94.4 fL (80.0-100.0); MEAN PLATELET VOLUME 9.3 fL (7.4-10.4); MONOCYTES 6.7 % (2-11); NEUTROPHILS 81.1 % (40-80); RBC 2.85 10x6/uL (4.00-5.40); WBC 10.5 10x3/uL (4.8-10.8)
[2018-01-23 04:44] LABS: PLATELET COUNT 238 10x3/uL (130-400)
[2018-01-23 04:51] LABS: ANION GAP 11.1 mmol/L (8-16); CALCIUM 8.5 mg/dL (8.5-10.1); CARBON DIOXIDE 32.4 mmol/L (21.0-32.0); CREATININE - SERUM 2.9 mg/dL (0.6-1.3); MAGNESIUM - SERUM 1.6 mg/dL (1.8-2.4); PHOSPHOROUS 5.8 mg/dL (2.5-4.9); POTASSIUM - SERUM 3.5 mmol/L (3.5-5.1); VANCOMYCIN - RANDOM 17.5 ug/mL (10.0-20.0)
[2018-01-23 13:16] LABS: FUNGUS STAIN Final report (())
[2018-01-23 13:16] LABS: FUNGUS STAIN Final report (())
[2018-01-24] VITALS (26 sets, daily range): BP systolic 124–197; BP diastolic 67–99
[2018-01-24 05:22] LABS: BASOPHILS 0.2 % (0-2); EOSINOPHILS 1.3 % (0-7); HEMATOCRIT 27.1 % (36.0-48.0); HEMOGLOBIN 8.1 g/dL (12-16); IMMATURE GRANULOCYTES 1.5 % (0-5); LYMPHOCYTES 5.4 % (15-50); MCH 28.3 pg (26.0-34.0); MCHC 29.9 g/dL (31.0-37.0); MCV 94.8 fL (80.0-100.0); MEAN PLATELET VOLUME 9.6 fL (7.4-10.4); MONOCYTES 7.6 % (2-11); PLATELET COUNT 276 10x3/uL (130-400); RBC 2.86 10x6/uL (4.00-5.40); RDW 17.1 % (11.5-14.5); WBC 10.2 10x3/uL (4.8-10.8)
[2018-01-24 05:38] LABS: ALBUMIN 3.1 g/dL (3.4-5.0); ANION GAP 14.6 mmol/L (8-16); BILIRUBIN - TOTAL 0.63 mg/dL (0.2-1.3); CALCIUM 8.5 mg/dL (8.5-10.1); CREATININE - SERUM 2.9 mg/dL (0.6-1.3); MAGNESIUM - SERUM 1.9 mg/dL (1.8-2.4); PHOSPHOROUS 5.2 mg/dL (2.5-4.9); POTASSIUM - SERUM 3.6 mmol/L (3.5-5.1); VANCOMYCIN - RANDOM 20.1 ug/mL (10.0-20.0)
[2018-01-24 13:32] LABS: APTT 28.1 SECONDS (22.8-39.4); INR 1.44 (0.85-1.17); PROTIME 17.1 SECONDS (11.6-15.0)
[2018-01-24 17:11] LABS: PROTEIN - BODY FLUID 3.7 G/DL
[2018-01-24 18:06] LABS: EOS BF 1 %; MACROPHAGES BF 9 %; MESOTHELIALS BF 7 %; NEUT - BF 25 %
[2018-01-24 22:42] LABS: CREATININE - URINE 67.1 mg/dL (30-125); PROTEIN - URINE 180.6 mg/dL (0.0-11.9)
[2018-01-24 22:53] LABS: CREATININE - SERUM 2.9 mg/dL (0.6-1.3)
[2018-01-25] VITALS (24 sets, daily range): BP systolic 124–159; BP diastolic 70–778
[2018-01-25 04:29] LABS: BASOPHILS 0.1 % (0-2); EOSINOPHILS 0.4 % (0-7); HEMATOCRIT 27.4 % (36.0-48.0); HEMOGLOBIN 8.3 g/dL (12-16); IMMATURE GRANULOCYTES 1.1 % (0-5); LYMPHOCYTES 5.4 % (15-50); MCH 28.5 pg (26.0-34.0); MCHC 30.3 g/dL (31.0-37.0); MCV 94.2 fL (80.0-100.0); MEAN PLATELET VOLUME 9.2 fL (7.4-10.4); MONOCYTES 8.3 % (2-11); NEUTROPHILS 84.7 % (40-80); PLATELET COUNT 265 10x3/uL (130-400); RBC 2.91 10x6/uL (4.00-5.40); WBC 13.2 10x3/uL (4.8-10.8)
[2018-01-25 04:44] LABS: ALBUMIN 2.7 g/dL (3.4-5.0); ANION GAP 14.1 mmol/L (8-16); BILIRUBIN - TOTAL 0.51 mg/dL (0.2-1.3); CALCIUM 8.5 mg/dL (8.5-10.1); CARBON DIOXIDE 31.6 mmol/L (21.0-32.0); CREATININE - SERUM 2.9 mg/dL (0.6-1.3); MAGNESIUM - SERUM 2.2 mg/dL (1.8-2.4); PHOSPHOROUS 5.2 mg/dL (2.5-4.9); POTASSIUM - SERUM 3.7 mmol/L (3.5-5.1); PROTEIN - SERUM 6.3 g/dL (6.4-8.2); VANCOMYCIN - RANDOM 15.3 ug/mL (10.0-20.0)
[2018-01-25 09:01] LABS: THYROID STIMULATING HORMONE 5.57 uIU/mL (0.36-3.74)
[2018-01-25 17:54] LABS: ANION GAP 11.4 mmol/L (8-16); CALCIUM 8.3 mg/dL (8.5-10.1); CARBON DIOXIDE 31.3 mmol/L (21.0-32.0); CREATININE - SERUM 2.9 mg/dL (0.6-1.3); POTASSIUM - SERUM 3.7 mmol/L (3.5-5.1)
[2018-01-25 18:09] LABS: AFB SPECIMEN PROCESSING Concentration (())
[2018-01-26] VITALS (24 sets, daily range): BP systolic 105–147; BP diastolic 50–98
[2018-01-26 04:59] LABS: BASOPHILS 0.2 % (0-2); EOSINOPHILS 0.6 % (0-7); HEMATOCRIT 24.4 % (36.0-48.0); IMMATURE GRANULOCYTES 1.2 % (0-5); LYMPHOCYTES 11.9 % (15-50); MCH 28.2 pg (26.0-34.0); MCHC 29.9 g/dL (31.0-37.0); MCV 94.2 fL (80.0-100.0); MEAN PLATELET VOLUME 9.8 fL (7.4-10.4); MONOCYTES 1.8 % (2-11); NEUTROPHILS 84.3 % (40-80); PLATELET COUNT 316 10x3/uL (130-400); RBC 2.59 10x6/uL (4.00-5.40); WBC 10.4 10x3/uL (4.8-10.8)
[2018-01-26 05:03] LABS: HEMOGLOBIN 7.3 g/dL (12-16)
[2018-01-26 05:25] LABS: ALBUMIN 2.3 g/dL (3.4-5.0); ANION GAP 11.4 mmol/L (8-16); BILIRUBIN - TOTAL 0.44 mg/dL (0.2-1.3); CALCIUM 8.3 mg/dL (8.5-10.1); CARBON DIOXIDE 29.1 mmol/L (21.0-32.0); CREATININE - SERUM 2.9 mg/dL (0.6-1.3); MAGNESIUM - SERUM 2.3 mg/dL (1.8-2.4); PHOSPHOROUS 4.8 mg/dL (2.5-4.9); POTASSIUM - SERUM 3.5 mmol/L (3.5-5.1); PROTEIN - SERUM 5.6 g/dL (6.4-8.2); VANCOMYCIN - RANDOM 18.4 ug/mL (10.0-20.0)
[2018-01-26 11:25] LABS: CREATINE KINASE 20 UL (21-215); TROPONIN-I 0.057 ng/mL (0.000-0.060)
[2018-01-26 17:33] LABS: CKMB 1.9 U/L (0.0-3.6); CREATINE KINASE 26 UL (21-215); TROPONIN-I 0.051 ng/mL (0.000-0.060)
[2018-01-26 17:45] LABS: ANION GAP 12.8 mmol/L (8-16); CALCIUM 8.7 mg/dL (8.5-10.1); CREATININE - SERUM 2.9 mg/dL (0.6-1.3); POTASSIUM - SERUM 3.8 mmol/L (3.5-5.1)
[2018-01-27] VITALS (24 sets, daily range): BP systolic 107–170; BP diastolic 54–102
[2018-01-27 00:54] LABS: CKMB 2.1 U/L (0.0-3.6); CREATINE KINASE 24 UL (21-215); TROPONIN-I 0.053 ng/mL (0.000-0.060)
[2018-01-27 05:37] LABS: BASOPHILS 0.2 % (0-2); EOSINOPHILS 0.7 % (0-7); LYMPHOCYTES 11.2 % (15-50); MCH 28.9 pg (26.0-34.0); MCHC 30.8 g/dL (31.0-37.0); MCV 93.7 fL (80.0-100.0); MEAN PLATELET VOLUME 9.8 fL (7.4-10.4); MONOCYTES 1.6 % (2-11); NEUTROPHILS 85.3 % (40-80); PLATELET COUNT 312 10x3/uL (130-400); RDW 17.4 % (11.5-14.5); WBC 11.4 10x3/uL (4.8-10.8)
[2018-01-27 05:45] LABS: HEMATOCRIT 29.5 % (36.0-48.0); HEMOGLOBIN 9.1 g/dL (12-16); RBC 3.15 10x6/uL (4.00-5.40)
[2018-01-27 06:06] LABS: ALBUMIN 2.5 g/dL (3.4-5.0); BILIRUBIN - TOTAL 0.51 mg/dL (0.2-1.3); CALCIUM 8.5 mg/dL (8.5-10.1); CARBON DIOXIDE 28.7 mmol/L (21.0-32.0); CREATININE - SERUM 3.1 mg/dL (0.6-1.3); MAGNESIUM - SERUM 2.3 mg/dL (1.8-2.4); PHOSPHOROUS 5.3 mg/dL (2.5-4.9); POTASSIUM - SERUM 3.7 mmol/L (3.5-5.1); VANCOMYCIN - TROUGH 18.5 ug/mL (10.0-20.0)
[2018-01-27 19:26] LABS: ANION GAP 10.7 mmol/L (8-16); CALCIUM 8.6 mg/dL (8.5-10.1); CARBON DIOXIDE 28.9 mmol/L (21.0-32.0); POTASSIUM - SERUM 3.6 mmol/L (3.5-5.1)
[2018-01-28] VITALS (21 sets, daily range): BP systolic 107–163; BP diastolic 56–91
[2018-01-28 03:56] LABS: BASOPHILS 0.1 % (0-2); EOSINOPHILS 0.7 % (0-7); HEMATOCRIT 30.8 % (36.0-48.0); HEMOGLOBIN 9.4 g/dL (12-16); IMMATURE GRANULOCYTES 0.9 % (0-5); LYMPHOCYTES 11.9 % (15-50); MCH 28.9 pg (26.0-34.0); MCHC 30.5 g/dL (31.0-37.0); MCV 94.8 fL (80.0-100.0); MEAN PLATELET VOLUME 10.3 fL (7.4-10.4); MONOCYTES 1.7 % (2-11); NEUTROPHILS 84.7 % (40-80); PLATELET COUNT 334 10x3/uL (130-400); RBC 3.25 10x6/uL (4.00-5.40); RDW 17.3 % (11.5-14.5)
[2018-01-28 04:18] LABS: ALBUMIN 2.5 g/dL (3.4-5.0); ANION GAP 11.3 mmol/L (8-16); BILIRUBIN - TOTAL 0.49 mg/dL (0.2-1.3); CALCIUM 8.8 mg/dL (8.5-10.1); CARBON DIOXIDE 28.5 mmol/L (21.0-32.0); CREATININE - SERUM 3.1 mg/dL (0.6-1.3); MAGNESIUM - SERUM 2.2 mg/dL (1.8-2.4); PHOSPHOROUS 5.4 mg/dL (2.5-4.9); POTASSIUM - SERUM 3.8 mmol/L (3.5-5.1); PROTEIN - SERUM 6.3 g/dL (6.4-8.2)
[2018-01-28 17:13] LABS: FUNGUS STAIN Final report (())
[2018-01-28 18:03] LABS: ANION GAP 17.2 mmol/L (8-16); CALCIUM 8.5 mg/dL (8.5-10.1); CARBON DIOXIDE 26.5 mmol/L (21.0-32.0); CREATININE - SERUM 3.1 mg/dL (0.6-1.3); POTASSIUM - SERUM 3.7 mmol/L (3.5-5.1)
[2018-01-29] VITALS (24 sets, daily range): BP systolic 102–160; BP diastolic 53–97
[2018-01-29 04:52] LABS: ANION GAP 11.5 mmol/L (8-16); CALCIUM 8.4 mg/dL (8.5-10.1); CARBON DIOXIDE 29.2 mmol/L (21.0-32.0); POTASSIUM - SERUM 3.7 mmol/L (3.5-5.1)
[2018-01-29 07:45] LABS: MAGNESIUM - SERUM 2.2 mg/dL (1.8-2.4); PHOSPHOROUS 5.7 mg/dL (2.5-4.9)
[2018-01-29 10:23] LABS: FUNGUS CULTURE RESULT 2 Candida krusei (())
[2018-01-29 10:23] LABS: FUNGUS CULTURE RESULT 1 Candida parapsilosis (())
[2018-01-30] VITALS (24 sets, daily range): BP systolic 80–141; BP diastolic 59–93
[2018-01-30 04:30] LABS: BASOPHILS 0.1 % (0-2); EOSINOPHILS 0.1 % (0-7); HEMATOCRIT 28.3 % (36.0-48.0); IMMATURE GRANULOCYTES 0.7 % (0-5); LYMPHOCYTES 12.1 % (15-50); MCH 30.1 pg (26.0-34.0); MCHC 31.8 g/dL (31.0-37.0); MCV 94.6 fL (80.0-100.0); MEAN PLATELET VOLUME 10.6 fL (7.4-10.4); MONOCYTES 0.9 % (2-11); NEUTROPHILS 86.1 % (40-80); PLATELET COUNT 293 10x3/uL (130-400); RBC 2.99 10x6/uL (4.00-5.40); RDW 17.4 % (11.5-14.5); WBC 10.3 10x3/uL (4.8-10.8)
[2018-01-30 04:42] LABS: ALBUMIN 2.1 g/dL (3.4-5.0); ANION GAP 14.5 mmol/L (8-16); BILIRUBIN - TOTAL 0.46 mg/dL (0.2-1.3); CALCIUM 8.5 mg/dL (8.5-10.1); CARBON DIOXIDE 27.1 mmol/L (21.0-32.0); CREATININE - SERUM 2.9 mg/dL (0.6-1.3); PHOSPHOROUS 5.2 mg/dL (2.5-4.9); POTASSIUM - SERUM 3.6 mmol/L (3.5-5.1); PROTEIN - SERUM 5.7 g/dL (6.4-8.2)
[2018-01-30 18:09] LABS: ANION GAP 12.6 mmol/L (8-16); CALCIUM 8.7 mg/dL (8.5-10.1); CARBON DIOXIDE 27.9 mmol/L (21.0-32.0); CREATININE - SERUM 2.9 mg/dL (0.6-1.3); POTASSIUM - SERUM 3.5 mmol/L (3.5-5.1)
[2018-01-31] VITALS (25 sets, daily range): BP systolic 112–150; BP diastolic 64–99
[2018-01-31 04:08] LABS: BASOPHILS 0.1 % (0-2); EOSINOPHILS 0.1 % (0-7); HEMATOCRIT 29.7 % (36.0-48.0); HEMOGLOBIN 9.1 g/dL (12-16); IMMATURE GRANULOCYTES 0.8 % (0-5); MCH 29.1 pg (26.0-34.0); MCHC 30.6 g/dL (31.0-37.0); MCV 94.9 fL (80.0-100.0); MEAN PLATELET VOLUME 10.4 fL (7.4-10.4); MONOCYTES 4.7 % (2-11); NEUTROPHILS 85.3 % (40-80); PLATELET COUNT 313 10x3/uL (130-400); RBC 3.13 10x6/uL (4.00-5.40); RDW 17.6 % (11.5-14.5); WBC 9.9 10x3/uL (4.8-10.8)
[2018-01-31 04:17] LABS: ALBUMIN 2.1 g/dL (3.4-5.0); ANION GAP 13.6 mmol/L (8-16); BILIRUBIN - TOTAL 0.39 mg/dL (0.2-1.3); CALCIUM 8.8 mg/dL (8.5-10.1); CARBON DIOXIDE 25.9 mmol/L (21.0-32.0); CREATININE - SERUM 2.9 mg/dL (0.6-1.3); POTASSIUM - SERUM 3.5 mmol/L (3.5-5.1); PROTEIN - SERUM 5.9 g/dL (6.4-8.2)
[2018-01-31 18:21] LABS: ANION GAP 12.6 mmol/L (8-16); CALCIUM 8.8 mg/dL (8.5-10.1); CARBON DIOXIDE 26.9 mmol/L (21.0-32.0); CREATININE - SERUM 2.9 mg/dL (0.6-1.3); POTASSIUM - SERUM 3.5 mmol/L (3.5-5.1)
[2018-02-01] VITALS (23 sets, daily range): BP systolic 114–158; BP diastolic 59–99
[2018-02-01 04:08] LABS: BASOPHILS 0.2 % (0-2); EOSINOPHILS 0.1 % (0-7); HEMATOCRIT 28.5 % (36.0-48.0); HEMOGLOBIN 8.7 g/dL (12-16); IMMATURE GRANULOCYTES 0.8 % (0-5); LYMPHOCYTES 6.2 % (15-50); MCH 28.7 pg (26.0-34.0); MCHC 30.5 g/dL (31.0-37.0); MCV 94.1 fL (80.0-100.0); MEAN PLATELET VOLUME 10.1 fL (7.4-10.4); MONOCYTES 8.6 % (2-11); NEUTROPHILS 84.1 % (40-80); PLATELET COUNT 291 10x3/uL (130-400); RBC 3.03 10x6/uL (4.00-5.40); RDW 17.7 % (11.5-14.5); WBC 8.8 10x3/uL (4.8-10.8)
[2018-02-01 04:20] LABS: ALBUMIN 1.9 g/dL (3.4-5.0); ANION GAP 11.2 mmol/L (8-16); BILIRUBIN - TOTAL 0.35 mg/dL (0.2-1.3); CALCIUM 8.5 mg/dL (8.5-10.1); CARBON DIOXIDE 27.4 mmol/L (21.0-32.0); CREATININE - SERUM 2.8 mg/dL (0.6-1.3); PHOSPHOROUS 4.7 mg/dL (2.5-4.9); POTASSIUM - SERUM 3.6 mmol/L (3.5-5.1); PROTEIN - SERUM 5.5 g/dL (6.4-8.2)
[2018-02-01 14:24] LABS: ACID FAST SMEAR Negative (()); AFB SPECIMEN PROCESSING Concentration (()); FUNGUS STAIN Final report (())
[2018-02-01 18:09] LABS: ANION GAP 12.3 mmol/L (8-16); CALCIUM 8.5 mg/dL (8.5-10.1); CARBON DIOXIDE 26.1 mmol/L (21.0-32.0); CREATININE - SERUM 2.7 mg/dL (0.6-1.3); POTASSIUM - SERUM 3.4 mmol/L (3.5-5.1)
[2018-02-02] VITALS (24 sets, daily range): BP systolic 75–153; BP diastolic 56–107
[2018-02-02 04:57] LABS: BASOPHILS 0 % (0-2); EOSINOPHILS 0 % (0-7); HEMATOCRIT 26.6 % (36.0-48.0); HEMOGLOBIN 8.1 g/dL (12-16); IMMATURE GRANULOCYTES 0.5 % (0-5); LYMPHOCYTES 7.1 % (15-50); MCH 28.5 pg (26.0-34.0); MCHC 30.5 g/dL (31.0-37.0); MCV 93.7 fL (80.0-100.0); MEAN PLATELET VOLUME 10.2 fL (7.4-10.4); MONOCYTES 8.7 % (2-11); NEUTROPHILS 83.7 % (40-80); PLATELET COUNT 252 10x3/uL (130-400); RBC 2.84 10x6/uL (4.00-5.40); RDW 17.4 % (11.5-14.5); WBC 8.4 10x3/uL (4.8-10.8)
[2018-02-02 05:24] LABS: ALBUMIN 2.3 g/dL (3.4-5.0); ANION GAP 9.9 mmol/L (8-16); BILIRUBIN - TOTAL 0.41 mg/dL (0.2-1.3); CALCIUM 8.6 mg/dL (8.5-10.1); CARBON DIOXIDE 25.4 mmol/L (21.0-32.0); CREATININE - SERUM 2.7 mg/dL (0.6-1.3); MAGNESIUM - SERUM 1.6 mg/dL (1.8-2.4); POTASSIUM - SERUM 3.3 mmol/L (3.5-5.1); PROTEIN - SERUM 5.8 g/dL (6.4-8.2); VANCOMYCIN - RANDOM 14.9 ug/mL (10.0-20.0)
[2018-02-02 18:28] LABS: ANION GAP 9.1 mmol/L (8-16); CARBON DIOXIDE 28.2 mmol/L (21.0-32.0); CREATININE - SERUM 2.6 mg/dL (0.6-1.3); POTASSIUM - SERUM 3.3 mmol/L (3.5-5.1)
[2018-02-03] VITALS (24 sets, daily range): BP systolic 105–160; BP diastolic 68–99
[2018-02-03 04:15] LABS: BASOPHILS 0 % (0-2); EOSINOPHILS 0 % (0-7); HEMATOCRIT 25.8 % (36.0-48.0); HEMOGLOBIN 7.7 g/dL (12-16); IMMATURE GRANULOCYTES 0.7 % (0-5); LYMPHOCYTES 8.5 % (15-50); MCH 28.1 pg (26.0-34.0); MCHC 29.8 g/dL (31.0-37.0); MCV 94.2 fL (80.0-100.0); MEAN PLATELET VOLUME 10.1 fL (7.4-10.4); MONOCYTES 4.8 % (2-11); PLATELET COUNT 233 10x3/uL (130-400); RBC 2.74 10x6/uL (4.00-5.40); RDW 17.7 % (11.5-14.5); WBC 6.9 10x3/uL (4.8-10.8)
[2018-02-03 04:33] LABS: ALBUMIN 2.5 g/dL (3.4-5.0); BILIRUBIN - TOTAL 0.4 mg/dL (0.2-1.3); CALCIUM 8.8 mg/dL (8.5-10.1); CREATININE - SERUM 2.5 mg/dL (0.6-1.3); PHOSPHOROUS 3.9 mg/dL (2.5-4.9); POTASSIUM - SERUM 3.3 mmol/L (3.5-5.1); VANCOMYCIN - RANDOM 10.8 ug/mL (10.0-20.0)
[2018-02-03 04:38] LABS: ANION GAP 11.2 mmol/L (8-16)
[2018-02-04] VITALS (24 sets, daily range): BP systolic 128–155; BP diastolic 66–102
[2018-02-04 05:37] LABS: BASOPHILS 0.3 % (0-2); EOSINOPHILS 0 % (0-7); HEMOGLOBIN 9.1 g/dL (12-16); LYMPHOCYTES 5.8 % (15-50); MCHC 31.4 g/dL (31.0-37.0); MCV 92.4 fL (80.0-100.0); MEAN PLATELET VOLUME 9.7 fL (7.4-10.4); MONOCYTES 5.6 % (2-11); NEUTROPHILS 87.3 % (40-80); PLATELET COUNT 203 10x3/uL (130-400); RBC 3.14 10x6/uL (4.00-5.40); RDW 17.6 % (11.5-14.5); WBC 7.2 10x3/uL (4.8-10.8)
[2018-02-04 06:04] LABS: ALBUMIN 2.8 g/dL (3.4-5.0); ALKALINE PHOSPHATASE 84 U/L (46-116); BILIRUBIN - TOTAL 0.37 mg/dL (0.2-1.3); CALC OSMOLALITY 317 mosm/kg (275-300); CARBON DIOXIDE 25.4 mmol/L (21.0-32.0); CHLORIDE - SERUM 109 mmol/L (98-107); GLUCOSE 125 mg/dL (74-106); POTASSIUM - SERUM 3.4 mmol/L (3.5-5.1); PROTEIN - SERUM 5.9 g/dL (6.4-8.2); SODIUM 144 mmol/L (136-145); UREA NITROGEN 96 mg/dL (7-18); VANCOMYCIN - RANDOM 7.9 ug/mL (10.0-20.0)
[2018-02-04 06:07] LABS: ALT (SGPT) 2 U/L (10-68); CREATININE - SERUM 0.8 mg/dL (0.6-1.3); eGFR NON AFRICAN AMERICAN 77 mL/min (90-120)
[2018-02-04 07:39] LABS: ERYTHROCYTE SEDIMENTATION RATE 32 mm/hr (0-30)
[2018-02-04 08:47] LABS: PRE-ALBUMIN 14.3 mg/dL (18.0-35.7); T4 THYROXINE 5.1 ug/dL (4.7-13.3); THYROID STIMULATING HORMONE 1.89 uIU/mL (0.36-3.74)
[2018-02-04 13:15] LABS: APPEARANCE CLOUDY (CLEAR); BACTERIA FEW /hpf (NONE SEEN); BILIRUBIN NEGATIVE (NEGATIVE); COLOR YELLOW (YELLOW); EPITHELIAL CELLS 0-5 /hpf (0-5); GLUCOSE NEGATIVE (NEGATIVE); KETONE NEGATIVE (NEGATIVE); MUCUS <1+ /lpf (NONE SEEN); NITRITE NEGATIVE (NEGATIVE); PROTEIN TRACE mg/dL (NEGATIVE); RED CELLS - URINE 25-50 /hpf (0-5); UROBILINOGEN NORMAL (NORMAL); WHITE CELLS - URINE OCC /hpf (0-5)
[2018-02-04 15:56] LABS: ANION GAP 9.1 mmol/L (8-16); CALCIUM 9.5 mg/dL (8.5-10.1); CARBON DIOXIDE 26.9 mmol/L (21.0-32.0)
[2018-02-04 15:57] LABS: CREATININE - SERUM 2.1 mg/dL (0.6-1.3)
[2018-02-04 18:19] LABS: ANION GAP 10.4 mmol/L (8-16); CALCIUM 9.6 mg/dL (8.5-10.1); CARBON DIOXIDE 26.7 mmol/L (21.0-32.0); CREATININE - SERUM 2.1 mg/dL (0.6-1.3); POTASSIUM - SERUM 4.1 mmol/L (3.5-5.1)
[2018-02-05] VITALS (24 sets, daily range): BP systolic 122–143; BP diastolic 68–102
[2018-02-05 05:40] LABS: BASOPHILS 0.2 % (0-2); EOSINOPHILS 0 % (0-7); HEMATOCRIT 27.1 % (36.0-48.0); HEMOGLOBIN 8.5 g/dL (12-16); IMMATURE GRANULOCYTES 0.8 % (0-5); MCH 29.2 pg (26.0-34.0); MCHC 31.4 g/dL (31.0-37.0); MCV 93.1 fL (80.0-100.0); MEAN PLATELET VOLUME 9.8 fL (7.4-10.4); MONOCYTES 5.4 % (2-11); NEUTROPHILS 86.6 % (40-80); PLATELET COUNT 181 10x3/uL (130-400); RBC 2.91 10x6/uL (4.00-5.40); RDW 17.9 % (11.5-14.5); WBC 5.9 10x3/uL (4.8-10.8)
[2018-02-05 06:21] LABS: ALBUMIN 2.8 g/dL (3.4-5.0); ANION GAP 11.3 mmol/L (8-16); BILIRUBIN - TOTAL 0.35 mg/dL (0.2-1.3); CALCIUM 9.5 mg/dL (8.5-10.1); CARBON DIOXIDE 26.4 mmol/L (21.0-32.0); CREATININE - SERUM 2.2 mg/dL (0.6-1.3); PHOSPHOROUS 3.8 mg/dL (2.5-4.9); POTASSIUM - SERUM 3.7 mmol/L (3.5-5.1); VANCOMYCIN - RANDOM 6.4 ug/mL (10.0-20.0)
[2018-02-05 18:35] LABS: ANION GAP 9.5 mmol/L (8-16); CALCIUM 9.6 mg/dL (8.5-10.1); CARBON DIOXIDE 26.3 mmol/L (21.0-32.0); CREATININE - SERUM 1.9 mg/dL (0.6-1.3); POTASSIUM - SERUM 3.8 mmol/L (3.5-5.1)
[2018-02-06] VITALS (22 sets, daily range): BP systolic 114–138; BP diastolic 55–84
[2018-02-06 04:27] LABS: BASOPHILS 0.2 % (0-2); EOSINOPHILS 0 % (0-7); HEMATOCRIT 26.1 % (36.0-48.0); HEMOGLOBIN 8.1 g/dL (12-16); IMMATURE GRANULOCYTES 1.5 % (0-5); LYMPHOCYTES 10.7 % (15-50); MCH 28.9 pg (26.0-34.0); MCV 93.2 fL (80.0-100.0); MEAN PLATELET VOLUME 10.2 fL (7.4-10.4); MONOCYTES 4.3 % (2-11); NEUTROPHILS 83.3 % (40-80); PLATELET COUNT 159 10x3/uL (130-400); RDW 18.1 % (11.5-14.5); WBC 5.3 10x3/uL (4.8-10.8)
[2018-02-06 04:59] LABS: ALBUMIN 2.8 g/dL (3.4-5.0); ANION GAP 11.1 mmol/L (8-16); BILIRUBIN - TOTAL 0.46 mg/dL (0.2-1.3); CALCIUM 9.8 mg/dL (8.5-10.1); CARBON DIOXIDE 24.7 mmol/L (21.0-32.0); POTASSIUM - SERUM 3.8 mmol/L (3.5-5.1); VANCOMYCIN - RANDOM 5.9 ug/mL (10.0-20.0)
[2018-02-06 15:25] LABS: FUNGUS CULTURE RESULT 1 Candida albicans (()); FUNGUS MYCOLOGY CULTURE Final report (())
[2018-02-06 18:19] LABS: ANION GAP 11.3 mmol/L (8-16); CALCIUM 9.8 mg/dL (8.5-10.1); CARBON DIOXIDE 24.5 mmol/L (21.0-32.0); CREATININE - SERUM 1.9 mg/dL (0.6-1.3); POTASSIUM - SERUM 3.8 mmol/L (3.5-5.1)
[2018-02-07] VITALS (23 sets, daily range): BP systolic 96–143; BP diastolic 51–84
[2018-02-07 05:21] LABS: BASOPHILS 0.2 % (0-2); EOSINOPHILS 0 % (0-7); HEMATOCRIT 23.6 % (36.0-48.0); IMMATURE GRANULOCYTES 1.2 % (0-5); LYMPHOCYTES 13.9 % (15-50); MCH 28.9 pg (26.0-34.0); MCHC 30.9 g/dL (31.0-37.0); MCV 93.3 fL (80.0-100.0); MEAN PLATELET VOLUME 10.1 fL (7.4-10.4); MONOCYTES 4.6 % (2-11); NEUTROPHILS 80.1 % (40-80); RBC 2.53 10x6/uL (4.00-5.40); RDW 18.1 % (11.5-14.5); WBC 5.1 10x3/uL (4.8-10.8)
[2018-02-07 05:25] LABS: HEMOGLOBIN 7.3 g/dL (12-16); PLATELET COUNT 125 10x3/uL (130-400)
[2018-02-07 05:38] LABS: ALBUMIN 2.5 g/dL (3.4-5.0); ANION GAP 12.1 mmol/L (8-16); BILIRUBIN - TOTAL 0.43 mg/dL (0.2-1.3); CALCIUM 9.5 mg/dL (8.5-10.1); CARBON DIOXIDE 24.7 mmol/L (21.0-32.0); CREATININE - SERUM 1.9 mg/dL (0.6-1.3); PHOSPHOROUS 3.2 mg/dL (2.5-4.9); POTASSIUM - SERUM 3.8 mmol/L (3.5-5.1); PROTEIN - SERUM 5.4 g/dL (6.4-8.2)
[2018-02-07 10:09] LABS: INR 1.77 (0.85-1.17)
[2018-02-07 19:24] LABS: ANION GAP 11.9 mmol/L (8-16); CALCIUM 10.3 mg/dL (8.5-10.1); CARBON DIOXIDE 25.5 mmol/L (21.0-32.0); CREATININE - SERUM 1.8 mg/dL (0.6-1.3)
[2018-02-07 19:46] LABS: POTASSIUM - SERUM 4.4 mmol/L (3.5-5.1)
[2018-02-08] VITALS (24 sets, daily range): BP systolic 98–141; BP diastolic 48–87
[2018-02-08 05:40] LABS: BASOPHILS 0.2 % (0-2); EOSINOPHILS 0 % (0-7); HEMATOCRIT 26.6 % (36.0-48.0); HEMOGLOBIN 8.4 g/dL (12-16); IMMATURE GRANULOCYTES 0.8 % (0-5); LYMPHOCYTES 10.9 % (15-50); MCH 29.1 pg (26.0-34.0); MCHC 31.6 g/dL (31.0-37.0); MEAN PLATELET VOLUME 9.8 fL (7.4-10.4); MONOCYTES 5.7 % (2-11); NEUTROPHILS 82.4 % (40-80); PLATELET COUNT 105 10x3/uL (130-400); RBC 2.89 10x6/uL (4.00-5.40); RDW 18.1 % (11.5-14.5)
[2018-02-08 05:44] LABS: WBC 6.6 10x3/uL (4.8-10.8)
[2018-02-08 05:51] LABS: APTT 38.8 SECONDS (22.8-39.4); INR 1.8 (0.85-1.17); PROTIME 20.3 SECONDS (11.6-15.0)
[2018-02-08 05:56] LABS: ALBUMIN 2.9 g/dL (3.4-5.0); ANION GAP 13.7 mmol/L (8-16); BILIRUBIN - TOTAL 0.47 mg/dL (0.2-1.3); CALCIUM 9.9 mg/dL (8.5-10.1); CARBON DIOXIDE 24.3 mmol/L (21.0-32.0); CREATININE - SERUM 1.8 mg/dL (0.6-1.3); PROTEIN - SERUM 6.1 g/dL (6.4-8.2)
[2018-02-08 05:59] LABS: D-DIMER-QUANTITATIVE 11.06 ug/mLFEU (0.20-0.54)
[2018-02-08 17:47] LABS: ANION GAP 11.5 mmol/L (8-16); CALCIUM 10.7 mg/dL (8.5-10.1); CARBON DIOXIDE 24.3 mmol/L (21.0-32.0); CREATININE - SERUM 1.7 mg/dL (0.6-1.3); POTASSIUM - SERUM 4.8 mmol/L (3.5-5.1)
[2018-02-09] VITALS (23 sets, daily range): BP systolic 70–141; BP diastolic 53–87
[2018-02-09 05:06] LABS: BASOPHILS 0 % (0-2); EOSINOPHILS 0 % (0-7); HEMATOCRIT 24.8 % (36.0-48.0); HEMOGLOBIN 7.7 g/dL (12-16); IMMATURE GRANULOCYTES 0.3 % (0-5); LYMPHOCYTES 14.8 % (15-50); MCH 29.1 pg (26.0-34.0); MCV 93.6 fL (80.0-100.0); MEAN PLATELET VOLUME 10.4 fL (7.4-10.4); MONOCYTES 4.5 % (2-11); NEUTROPHILS 80.4 % (40-80); RBC 2.65 10x6/uL (4.00-5.40); RDW 18.3 % (11.5-14.5); WBC 5.8 10x3/uL (4.8-10.8)
[2018-02-09 05:10] LABS: PLATELET COUNT 102 10x3/uL (130-400)
[2018-02-09 05:19] LABS: APTT 37.6 SECONDS (22.8-39.4); INR 1.86 (0.85-1.17); PROTIME 20.9 SECONDS (11.6-15.0)
[2018-02-09 05:21] LABS: ANION GAP 12.8 mmol/L (8-16); CALCIUM 10.1 mg/dL (8.5-10.1); CARBON DIOXIDE 24.3 mmol/L (21.0-32.0); CREATININE - SERUM 1.7 mg/dL (0.6-1.3); MAGNESIUM - SERUM 1.3 mg/dL (1.8-2.4); POTASSIUM - SERUM 4.1 mmol/L (3.5-5.1)
[2018-02-09 18:23] LABS: CALCIUM 10.3 mg/dL (8.5-10.1); CARBON DIOXIDE 24.3 mmol/L (21.0-32.0); CREATININE - SERUM 1.8 mg/dL (0.6-1.3); POTASSIUM - SERUM 4.3 mmol/L (3.5-5.1)
[2018-02-10] VITALS (24 sets, daily range): BP systolic 89–136; BP diastolic 44–99
[2018-02-10 04:56] LABS: ANION GAP 11.5 mmol/L (8-16); CALCIUM 10.3 mg/dL (8.5-10.1); CARBON DIOXIDE 24.6 mmol/L (21.0-32.0); CREATININE - SERUM 1.9 mg/dL (0.6-1.3); POTASSIUM - SERUM 4.1 mmol/L (3.5-5.1)
[2018-02-10 05:17] LABS: BASOPHILS 0.2 % (0-2); EOSINOPHILS 0 % (0-7); HEMATOCRIT 22.8 % (36.0-48.0); IMMATURE GRANULOCYTES 0.4 % (0-5); LYMPHOCYTES 14.2 % (15-50); MCH 29.2 pg (26.0-34.0); MCHC 31.1 g/dL (31.0-37.0); MCV 93.8 fL (80.0-100.0); MEAN PLATELET VOLUME 10.4 fL (7.4-10.4); MONOCYTES 5.6 % (2-11); NEUTROPHILS 79.6 % (40-80); PLATELET COUNT 79 10x3/uL (130-400); RBC 2.43 10x6/uL (4.00-5.40); RDW 18.3 % (11.5-14.5); WBC 5.5 10x3/uL (4.8-10.8)
[2018-02-10 05:18] LABS: HEMOGLOBIN 7.1 g/dL (12-16)
[2018-02-10 17:57] LABS: ANION GAP 12.8 mmol/L (8-16); CALCIUM 10.6 mg/dL (8.5-10.1); CARBON DIOXIDE 23.4 mmol/L (21.0-32.0); CREATININE - SERUM 1.8 mg/dL (0.6-1.3); POTASSIUM - SERUM 4.2 mmol/L (3.5-5.1)
[2018-02-11] VITALS (25 sets, daily range): BP systolic 102–125; BP diastolic 52–76
[2018-02-11 04:35] LABS: BASOPHILS 0.2 % (0-2); EOSINOPHILS 0 % (0-7); HEMATOCRIT 24.8 % (36.0-48.0); HEMOGLOBIN 7.8 g/dL (12-16); IMMATURE GRANULOCYTES 0.5 % (0-5); LYMPHOCYTES 16.7 % (15-50); MCH 29.1 pg (26.0-34.0); MCHC 31.5 g/dL (31.0-37.0); MCV 92.5 fL (80.0-100.0); MEAN PLATELET VOLUME 10.8 fL (7.4-10.4); MONOCYTES 5.2 % (2-11); NEUTROPHILS 77.4 % (40-80); PLATELET COUNT 76 10x3/uL (130-400); RBC 2.68 10x6/uL (4.00-5.40); RDW 18.1 % (11.5-14.5); WBC 5.6 10x3/uL (4.8-10.8)
[2018-02-11 05:06] LABS: ANION GAP 13.2 mmol/L (8-16); CALCIUM 10.7 mg/dL (8.5-10.1); CREATININE - SERUM 1.7 mg/dL (0.6-1.3); POTASSIUM - SERUM 4.2 mmol/L (3.5-5.1)
[2018-02-11 05:59] LABS: PLATELET ESTIMATE DECREASED
[2018-02-11 08:08] LABS: FUNGUS MYCOLOGY CULTURE Final report (())
[2018-02-11 13:27] LABS: INR 1.81 (0.85-1.17); PROTIME 20.4 SECONDS (11.6-15.0)
[2018-02-12] VITALS (26 sets, daily range): BP systolic 105–140; BP diastolic 53–83
[2018-02-12 05:55] LABS: ANION GAP 14.1 mmol/L (8-16); CALCIUM 10.8 mg/dL (8.5-10.1); CARBON DIOXIDE 20.9 mmol/L (21.0-32.0); CREATININE - SERUM 1.8 mg/dL (0.6-1.3); PHOSPHOROUS 3.3 mg/dL (2.5-4.9)
[2018-02-12 08:14] LABS: BASOPHILS 0 % (0-2); EOSINOPHILS 0 % (0-7); HEMATOCRIT 24.6 % (36.0-48.0); IMMATURE GRANULOCYTES 0.4 % (0-5); LYMPHOCYTES 18.3 % (15-50); MCH 28.7 pg (26.0-34.0); MCHC 30.5 g/dL (31.0-37.0); MCV 94.3 fL (80.0-100.0); MEAN PLATELET VOLUME 11.4 fL (7.4-10.4); MONOCYTES 3.6 % (2-11); NEUTROPHILS 77.7 % (40-80); PLATELET COUNT 66 10x3/uL (130-400); RBC 2.61 10x6/uL (4.00-5.40); RDW 18.3 % (11.5-14.5); WBC 5.6 10x3/uL (4.8-10.8)
[2018-02-12 08:17] LABS: HEMOGLOBIN 7.5 g/dL (12-16)
[2018-02-12 19:08] LABS: ANION GAP 3.1 mmol/L (8-16); CALCIUM 9.9 mg/dL (8.5-10.1); CARBON DIOXIDE 20.6 mmol/L (21.0-32.0); CREATININE - SERUM 1.9 mg/dL (0.6-1.3); POTASSIUM - SERUM 3.7 mmol/L (3.5-5.1)
[2018-02-13] VITALS (24 sets, daily range): BP systolic 83–140; BP diastolic 42–85
[2018-02-13 00:09] LABS: ANION GAP 12.7 mmol/L (8-16); CALCIUM 10.4 mg/dL (8.5-10.1); CARBON DIOXIDE 23.2 mmol/L (21.0-32.0); CREATININE - SERUM 1.7 mg/dL (0.6-1.3); POTASSIUM - SERUM 3.9 mmol/L (3.5-5.1)
[2018-02-13 05:24] LABS: BASOPHILS 0.1 % (0-2); EOSINOPHILS 0 % (0-7); HEMOGLOBIN 8.5 g/dL (12-16); IMMATURE GRANULOCYTES 0.3 % (0-5); LYMPHOCYTES 16.5 % (15-50); MCH 28.4 pg (26.0-34.0); MCHC 31.5 g/dL (31.0-37.0); MONOCYTES 4.5 % (2-11); NEUTROPHILS 78.6 % (40-80); PLATELET COUNT 63 10x3/uL (130-400); RBC 2.99 10x6/uL (4.00-5.40); RDW 19.8 % (11.5-14.5); WBC 6.9 10x3/uL (4.8-10.8)
[2018-02-13 05:45] LABS: MCV 90.3 fL (80.0-100.0)
[2018-02-13 05:57] LABS: ALBUMIN 3.2 g/dL (3.4-5.0); BILIRUBIN - TOTAL 0.62 mg/dL (0.2-1.3); CALCIUM 10.5 mg/dL (8.5-10.1); CREATININE - SERUM 1.6 mg/dL (0.6-1.3); MAGNESIUM - SERUM 2.1 mg/dL (1.8-2.4); PROTEIN - SERUM 6.2 g/dL (6.4-8.2)
[2018-02-13 07:36] LABS: FUNGUS MYCOLOGY CULTURE Final report (())
[2018-02-13 20:23] LABS: ANION GAP 5.4 mmol/L (8-16); CALCIUM 9.3 mg/dL (8.5-10.1); CARBON DIOXIDE 20.1 mmol/L (21.0-32.0); CREATININE - SERUM 1.7 mg/dL (0.6-1.3); POTASSIUM - SERUM 3.5 mmol/L (3.5-5.1)
[2018-02-13 20:25] LABS: BASOPHILS 0.2 % (0-2); EOSINOPHILS 0 % (0-7); HEMATOCRIT 22.5 % (36.0-48.0); IMMATURE GRANULOCYTES 0.4 % (0-5); LYMPHOCYTES 17.4 % (15-50); MCH 28.7 pg (26.0-34.0); MCHC 31.6 g/dL (31.0-37.0); MEAN PLATELET VOLUME 10.7 fL (7.4-10.4); MONOCYTES 6.5 % (2-11); NEUTROPHILS 75.5 % (40-80); PLATELET COUNT 54 10x3/uL (130-400); RBC 2.47 10x6/uL (4.00-5.40); RDW 19.8 % (11.5-14.5); WBC 5.6 10x3/uL (4.8-10.8)
[2018-02-13 21:04] LABS: HEMOGLOBIN 7.1 g/dL (12-16); MCV 91.1 fL (80.0-100.0)
[2018-02-14] VITALS (24 sets, daily range): BP systolic 90–134; BP diastolic 41–97
[2018-02-14 04:26] LABS: BASOPHILS 0.1 % (0-2); EOSINOPHILS 0 % (0-7); HEMATOCRIT 24.9 % (36.0-48.0); HEMOGLOBIN 7.8 g/dL (12-16); IMMATURE GRANULOCYTES 0.7 % (0-5); LYMPHOCYTES 20.4 % (15-50); MCH 28.6 pg (26.0-34.0); MCHC 31.3 g/dL (31.0-37.0); MCV 91.2 fL (80.0-100.0); MONOCYTES 4.9 % (2-11); NEUTROPHILS 73.9 % (40-80); PLATELET COUNT 57 10x3/uL (130-400); RBC 2.73 10x6/uL (4.00-5.40); RDW 19.9 % (11.5-14.5)
[2018-02-14 05:01] LABS: ALBUMIN 3.3 g/dL (3.4-5.0); BILIRUBIN - TOTAL 0.64 mg/dL (0.2-1.3); CALCIUM 9.9 mg/dL (8.5-10.1); CARBON DIOXIDE 22.4 mmol/L (21.0-32.0); CREATININE - SERUM 1.5 mg/dL (0.6-1.3); MAGNESIUM - SERUM 2.1 mg/dL (1.8-2.4); PROTEIN - SERUM 6.3 g/dL (6.4-8.2)
[2018-02-14 05:12] LABS: ANION GAP 14.8 mmol/L (8-16); POTASSIUM - SERUM 4.2 mmol/L (3.5-5.1)
[2018-02-14 19:12] LABS: ANION GAP 14.8 mmol/L (8-16); CALCIUM 9.5 mg/dL (8.5-10.1); CREATININE - SERUM 1.4 mg/dL (0.6-1.3); POTASSIUM - SERUM 3.8 mmol/L (3.5-5.1)
[2018-02-15] VITALS (7 sets, daily range): BP systolic 94–133; BP diastolic 42–70
[2018-02-15 04:51] LABS: ANION GAP 14.7 mmol/L (8-16); CARBON DIOXIDE 21.2 mmol/L (21.0-32.0); CREATININE - SERUM 1.5 mg/dL (0.6-1.3); POTASSIUM - SERUM 3.9 mmol/L (3.5-5.1)
[2018-02-15 09:49] LABS: BASOPHILS 0.2 % (0-2); EOSINOPHILS 0 % (0-7); HEMATOCRIT 22.2 % (36.0-48.0); IMMATURE GRANULOCYTES 1.6 % (0-5); LYMPHOCYTES 24.8 % (15-50); MCH 28.5 pg (26.0-34.0); MCHC 30.6 g/dL (31.0-37.0); MCV 92.9 fL (80.0-100.0); MEAN PLATELET VOLUME 11.6 fL (7.4-10.4); MONOCYTES 7.2 % (2-11); NEUTROPHILS 66.2 % (40-80); PLATELET COUNT 66 10x3/uL (130-400); RBC 2.39 10x6/uL (4.00-5.40)
[2018-02-15 09:56] LABS: ALBUMIN 3.3 g/dL (3.4-5.0); BILIRUBIN - TOTAL 0.59 mg/dL (0.2-1.3); CALCIUM 9.2 mg/dL (8.5-10.1); CARBON DIOXIDE 20.9 mmol/L (21.0-32.0); CREATININE - SERUM 1.5 mg/dL (0.6-1.3); MAGNESIUM - SERUM 2.1 mg/dL (1.8-2.4)
[2018-02-15 10:11] LABS: ANION GAP 15.1 mmol/L (8-16)
[2018-02-15 10:19] LABS: HEMOGLOBIN 6.8 g/dL (12-16); WBC 5.2 10x3/uL (4.8-10.8)
[2018-02-18 09:09] LABS: FUNGUS MYCOLOGY CULTURE Final report (())
[2018-02-22 11:21] LABS: FUNGUS MYCOLOGY CULTURE Final report (())
[2018-02-28 18:10] LABS: FUNGUS MYCOLOGY CULTURE Final report (())
[2018-03-07 15:25] LABS: ACID FAST CULTURE Negative (()); ACID FAST SMEAR Negative (())
[2018-03-09 13:10] LABS: ACID FAST CULTURE Negative (()); ACID FAST SMEAR Negative (())
[2018-03-15 07:34] LABS: ACID FAST CULTURE Negative (()); ACID FAST SMEAR Negative (())
[2018-03-15 07:34] LABS: ACID FAST CULTURE Negative (()); ACID FAST SMEAR Negative (())
[2018-03-15 07:34] LABS: ACID FAST CULTURE Negative (()); ACID FAST SMEAR Negative (())
[2018-03-26 08:20] LABS: ACID FAST CULTURE Negative (())
== END 2018-02-15 11:11 | DRG 3 ==
LOC: D.ER 13:50 → D.EDHOLD 18:02 → D.ICU 18:02 → D.MS 18:40 → D.EDHOLD 18:50 → D.ICU 19:03
PROVIDERS: Emergency Medicine; General Practice; Internal Medicine; Internal Medicine Nephrology; Internal Medicine Pulmonary Disease; Radiology Diagnostic Radiology; Student in an Organized Health Care Education/Training Program; Surgery
PROC: 5A1955Z Respiratory Ventilation, Greater than 96 Consecutive Hours (ICD-10-PCS; 2017-12-30)
PROC: 0BH17EZ Insertion of Endotracheal Airway into Trachea, Via Natural or Artificial Opening (ICD-10-PCS; 2017-12-30)
PROC: 05HM33Z Insertion of Infusion Device into Right Internal Jugular Vein, Percutaneous Approach (ICD-10-PCS; 2017-12-30)
PROC: 05H633Z Insertion of Infusion Device into Left Subclavian Vein, Percutaneous Approach (ICD-10-PCS; 2017-12-31)
PROC: 05HN33Z Insertion of Infusion Device into Left Internal Jugular Vein, Percutaneous Approach (ICD-10-PCS; 2017-12-31)
PROC: 0D748DZ Dilation of Esophagogastric Junction with Intraluminal Device, Via Natural or Artificial Opening Endoscopic (ICD-10-PCS; 2017-12-31)
PROC: 0D748DZ Dilation of Esophagogastric Junction with Intraluminal Device, Via Natural or Artificial Opening Endoscopic (ICD-10-PCS; principal; 2017-12-31 13:15)
PROC: 0D748DZ Dilation of Esophagogastric Junction with Intraluminal Device, Via Natural or Artificial Opening Endoscopic (ICD-10-PCS; 2018-01-02)
PROC: 0W9F3ZZ Drainage of Abdominal Wall, Percutaneous Approach (ICD-10-PCS; 2018-01-05)
PROC: 0BJ08ZZ Inspection of Tracheobronchial Tree, Via Natural or Artificial Opening Endoscopic (ICD-10-PCS; 2018-01-14)
PROC: 0DJ08ZZ Inspection of Upper Intestinal Tract, Via Natural or Artificial Opening Endoscopic (ICD-10-PCS; 2018-01-14)
PROC: 05H533Z Insertion of Infusion Device into Right Subclavian Vein, Percutaneous Approach (ICD-10-PCS; 2018-01-14)
PROC: 0W9G0ZZ Drainage of Peritoneal Cavity, Open Approach (ICD-10-PCS; 2018-01-14 13:00)
PROC: 0B113F4 Bypass Trachea to Cutaneous with Tracheostomy Device, Percutaneous Approach (ICD-10-PCS; 2018-01-14 13:00)
PROC: 0BJ08ZZ Inspection of Tracheobronchial Tree, Via Natural or Artificial Opening Endoscopic (ICD-10-PCS; 2018-01-16)
PROC: 0DC58ZZ Extirpation of Matter from Esophagus, Via Natural or Artificial Opening Endoscopic (ICD-10-PCS; 2018-01-17)
PROC: 0D778ZZ Dilation of Stomach, Pylorus, Via Natural or Artificial Opening Endoscopic (ICD-10-PCS; 2018-01-17)
PROC: 3E0G8GC Introduction of Other Therapeutic Substance into Upper GI, Via Natural or Artificial Opening Endoscopic (ICD-10-PCS; 2018-01-17)
PROC: 0B938ZZ Drainage of Right Main Bronchus, Via Natural or Artificial Opening Endoscopic (ICD-10-PCS; 2018-01-19)
PROC: 0B948ZZ Drainage of Right Upper Lobe Bronchus, Via Natural or Artificial Opening Endoscopic (ICD-10-PCS; 2018-01-19)
PROC: 0BC38ZZ Extirpation of Matter from Right Main Bronchus, Via Natural or Artificial Opening Endoscopic (ICD-10-PCS; 2018-01-20)
PROC: 2W03X6Z Change Pressure Dressing on Abdominal Wall (ICD-10-PCS; 2018-01-21)
PROC: 2W13X6Z Compression of Abdominal Wall using Pressure Dressing (ICD-10-PCS; 2018-01-24)
PROC: 0W9930Z Drainage of Right Pleural Cavity with Drainage Device, Percutaneous Approach (ICD-10-PCS; 2018-01-24)
PROC: 0WQF0ZZ Repair Abdominal Wall, Open Approach (ICD-10-PCS; 2018-01-28)
PROC: 0D738DZ Dilation of Lower Esophagus with Intraluminal Device, Via Natural or Artificial Opening Endoscopic (ICD-10-PCS; 2018-01-28)
PROC: 3E1M38Z Irrigation of Peritoneal Cavity using Irrigating Substance, Percutaneous Approach (ICD-10-PCS; 2018-01-28)
PROC: 0WQF0ZZ Repair Abdominal Wall, Open Approach (ICD-10-PCS; 2018-01-31)
PROC: 0B968ZZ Drainage of Right Lower Lobe Bronchus, Via Natural or Artificial Opening Endoscopic (ICD-10-PCS; 2018-01-31)
PROC: 3E1M38Z Irrigation of Peritoneal Cavity using Irrigating Substance, Percutaneous Approach (ICD-10-PCS; 2018-01-31)
PROC: 05HY33Z Insertion of Infusion Device into Upper Vein, Percutaneous Approach (ICD-10-PCS; 2018-02-04)
DX: T81.4XXA Infection following a procedure, initial encounter (principal); A41.9 Sepsis, unspecified organism; R65.21 Severe sepsis with septic shock; N17.0 Acute kidney failure with tubular necrosis; J96.21 Acute and chronic respiratory failure with hypoxia; J18.9 Pneumonia, unspecified organism; G93.41 Metabolic encephalopathy; I50.23 Acute on chronic systolic (congestive) heart failure; J86.9 Pyothorax without fistula; K65.9 Peritonitis, unspecified; K63.1 Perforation of intestine (nontraumatic); J90 Pleural effusion, not elsewhere classified; M62.82 Rhabdomyolysis; E87.2 Acidosis; L02.211 Cutaneous abscess of abdominal wall; Z68.43 Body mass index [BMI] 50.0-59.9, adult; C34.90 Malignant neoplasm of unspecified part of unspecified bronchus or lung; E87.0 Hyperosmolality and hypernatremia; E66.01 Morbid (severe) obesity due to excess calories; Z66 Do not resuscitate; R13.10 Dysphagia, unspecified; I95.9 Hypotension, unspecified; E86.0 Dehydration; E86.9 Volume depletion, unspecified; J45.909 Unspecified asthma, uncomplicated; R00.0 Tachycardia, unspecified; D75.1 Secondary polycythemia; E88.09 Other disorders of plasma-protein metabolism, not elsewhere classified; M19.90 Unspecified osteoarthritis, unspecified site; Z98.84 Bariatric surgery status; Y84.8 Other medical procedures as the cause of abnormal reaction of the patient, or of later complication, without mention of misadventure at the time of the procedure; Z87.891 Personal history of nicotine dependence; K44.9 Diaphragmatic hernia without obstruction or gangrene; J44.9 Chronic obstructive pulmonary disease, unspecified; I11.0 Hypertensive heart disease with heart failure; E83.52 Hypercalcemia; E87.6 Hypokalemia